=== PATIENT | female | born 1935 | race Caucasian/White ===

== ENCOUNTER 2017-03-03 12:15 | Inpatient (IN) | payer MEDICARE ==
[~2017-03-03] VITALS: Ht 162.6 cm; Wt 66.9 kg
[~2017-03-03 12:15] MED LIST: AMLO5TAB2 PO; ASPI325T33 PO; DEXTROSE 50% IN WATER 50 ML VIAL(D50) IV PUSH PRN; FISHCAP4 PO; FURO1TAB62 PO; FUROSEMIDE 40 MG/4 ML VIAL IVP SCH; GLUCAGON 1 MG/ML VIAL OTHER PRN; LANTUS2P SQ; NOVOLOGP2 SQ; POTA8CAP PO; SODIUM CHLORIDE 0.9% FLUSH 10 ML FLUSH IV FLUSH PRN; SYNT25TA PO; VITA1000 PO; [UNRECOGNIZED DRUG - OTHER]
[2017-03-03 13:13] VITALS: PULSE 65
[2017-03-03 13:30] VITALS: BP 158/83; PULSE 73; RESP 12; TEMP 96.7; O2SAT 97
[2017-03-03] MEDS ORDERED: LEVOFLOXACIN 750 MG TAB PO ONE (13:30)
[2017-03-03] MEDS: INSULIN ASPART SUPPLEMENTAL SCALE SQ SCH ×3 (13:52→21:23)
[2017-03-03] MEDS: HEPARIN SODIUM - SQ 10,000 UNITS/ML VIAL SQ SCH ×2 (13:52→21:22)
[2017-03-03] MEDS: SODIUM CHLORIDE 0.9% FLUSH 10 ML FLUSH IV FLUSH SCH ×2 (13:53→21:23)
[2017-03-03 16:00] VITALS: BP 150/81; PULSE 72; RESP 12; TEMP 96.6; O2SAT 97
[2017-03-03] MEDS ORDERED: BENZONATATE 100 MG CAP PO PRN (16:00)
[2017-03-03] MEDS ORDERED: amLODIPine BESYLATE 5 MG TAB PO ONE (16:15)
[2017-03-03] MEDS ORDERED: RESP: ALBUTEROL 2.5 MG/IPRATROPIUM 0.5 MG NEB (PRN) NEB (16:15)
--- NOTE | 2017-03-03 16:19 | HHI.HP ---
[facility] Eliazar Hopkins MD Admission Diagnosis Diagnoses: Travel History International Travel<30 Days: No Contact w/Intl Traveler <30 Da: No Traveled to Known Affected Are: No History of Present Illness 81-year-old female history of coronary artery disease status post CABG 6, colon cancer having completed chemotherapy, history of remote stroke, who presents with a one-week history of cough productive of clear sputum. She called EMS last night due to worsening of cough, experiencing an episode where she could not catch her breath, felt lightheaded if she was passed out, and also noticed fluid gurgling in her lungs, which was very concerning. She denies any fevers, chills, chest pain. She denies any shortness of breath. Patient denies any shortness of breath lying flat. Denies any bilateral lower extremity edema. She does report taking metoprolol 12.5 mg twice daily, however has not been taking it recently due to bradycardia with heart rate in the 50s. She has a erisa attorney, Dr. Milan" Review of Systems Performed and negative except for history of present illness and past medical history. Past Family Social History Past Medical History Diabetes mellitus and colon cancer status post chemotherapy Hyperlipidemia Coronary artery disease status post CABG Colon cancer status post chemotherapy Past Surgical History CABG 6. Cholecystectomy Hysterectomy Tonsillectomy history Of Graves' disease now with Hypothyroidism Reported Medications Reported Meds & Active Scripts Active Reported Amlodipine (Amlodipine Besylate) 5 Mg Tab 5 Mg PO DAILY Aspirin EC (Aspirin) 325 Mg Tabdr 325 Mg PO DAILY Synthroid (Levothyroxine Sodium) 25 Mcg Tab 88 PO DAILY Vitamin D-1000 (Cholecalciferol) 1,000 Unit Tab 1,000 Units PO DAILY Fish Oil + D3 (Fish Oil-Cholecalciferol) 1,200-1,000 Mg-Unit Cap 1 Cap PO DAILY Potassium Chloride ER (Potassium Chloride) 8 Meq Cap Unknown Dose PO BID Lasix (Furosemide) 20 Mg Tab 20 Mg PO BID Novolog Inj (Insulin Aspart) 1,000 Unit/10 Ml Vial 0 SQ DIRECTED Sliding Scale as directed. Lantus Inj (Insulin Glargine) 1,000 Unit/10 Ml Vial 20 Units SQ HS Allergies: Coded Allergies: diatrizoate meglumine (Unverified Allergy, Mild, ILL, 09/21/16) gadobenic acid (Unverified Allergy, Mild, ILL, 09/21/16) gadodiamide (Unverified Allergy, Mild, ILL, 09/21/16) gadoteridol (Unverified Allergy, Mild, ILL, 09/21/16) iodixanol (Unverified Allergy, Mild, ILL, 09/21/16) iohexol (Unverified Allergy, Mild, ILL, 09/21/16) meperidine (Unverified Allergy, Mild, SHOCK, 09/21/16) penicillin G (Unverified Allergy, Mild, HIVES, 09/21/16) amlodipine (Unverified Allergy, Unknown, unk, 09/21/16) atorvastatin (Unverified Allergy, Unknown, unk, 09/21/16) pravastatin (Unverified Allergy, Unknown, unk, 09/21/16) simvastatin (Unverified Allergy, Unknown, unk, 09/21/16) Family History Mother was a smoker, drinker, due to complications from this. She. Social History Nonsmoker. Nondrinker. Denies illicit drugs. Physical Exam Vital Signs Vital Signs Date Time Temp Pulse Resp B/P (MAP) Pulse Ox O2 Delivery O2 Flow Rate FiO2 03/03/17 13:30 96.7 73 12 158/83 (108) 97 Physical Exam GENERAL: This is a well-nourished, well-developed patient, in no apparent distress. SKIN: No rashes, ecchymoses or lesions. Cool and dry. HEAD: Atraumatic. Normocephalic. No temporal or scalp tenderness. EYES: Pupils equal round and reactive. Extraocular motions intact. No scleral icterus. No injection or drainage. ENT: Nose without bleeding, purulent drainage or septal hematoma. Throat without erythema, tonsillar hypertrophy or exudate. Uvula midline. Airway patent. NECK: Trachea midline. No JVD or lymphadenopathy. Supple, nontender, no meningeal signs. CARDIOVASCULAR: Regular rate and rhythm without murmurs, gallops, or rubs. RESPIRATORY: No rhonchi. No wheezes. Dry rales bilaterally at the bases. GASTROINTESTINAL: Abdomen soft, non-tender, nondistended. No hepato-splenomegaly , or palpable masses. No guarding. MUSCULOSKELETAL: Extremities without clubbing, cyanosis, or edema. No joint tenderness, effusion, or edema noted. No calf tenderness. Negative Homans sign bilaterally. NEUROLOGICAL: Awake and alert. Cranial nerves II through XII intact. Motor and sensory grossly within normal limits. Five out of 5 muscle strength in all muscle groups. Normal speech. Laboratory Laboratory Tests Test 03/03/17 04:15 Thyroid Stimulating Hormone 3rd Gen 1.280 Caprini VTE Risk Assessment Caprini VTE Risk Assessment: Mod/High Risk (score >= 2) Caprini Risk Assessment Model Point Value = 1 Point Value = 2 Point Value = 3 Point Value = 5 Age 41-60 Minor surgery BMI > 25 kg/m2 Swollen legs Varicose veins or History of unexplained or recurrent spontaneous Oral contraceptives or hormone replacement Sepsis (< 1 month) Serious lung disease, including pneumonia (< 1 month) Abnormal pulmonary function Acute myocardial infarction Congestive heart failure (< 1 month) History of inflammatory bowel disease Medical patient at bed rest Age 61-74 Arthroscopic surgery Major open surgery (> 45 min) Laparoscopic surgery (> 45 min) Malignancy Confined to bed (> 72 hours) Immobilizing plaster cast Central venous access Age >= 75 History of VTE Family history of VTE Factor V Leiden Prothrombin [id number] Lupus anticoagulant Anticardiolipin antibodies Elevated serum homocysteine Heparin-induced thrombocytopenia Other congenital or acquired thrombophilia Stroke (< 1 month) Elective arthroplasty Hip, pelvis, or leg fracture Acute spinal cord injury (< 1 month) Prophylaxis Regimen Total Risk Factor Score Risk Level Prophylaxis Regimen 0-1 Low Early ambulation 2 Moderate Order ONE of the following: *Sequential Compression Device (SCD) *Heparin 5000 units SQ BID 3-4 Higher Order ONE of the following medications: *Heparin 5000 units SQ TID *Enoxaparin/Lovenox 40 mg SQ daily (WT < 150 kg, CrCl > 30 mL/min) *Enoxaparin/Lovenox 30 mg SQ daily (WT < 150 kg, CrCl > 10-29 mL/min) *Enoxaparin/Lovenox 30 mg SQ BID (WT < 150 kg, CrCl > 30 mL/min) AND/OR *Sequential Compression Device (SCD) 5 or more Highest Order ONE of the following medications: *Heparin 5000 units SQ TID (Preferred with Epidurals) *Enoxaparin/Lovenox 40 mg SQ daily (WT < 150 kg, CrCl > 30 mL/min) *Enoxaparin/Lovenox 30 mg SQ daily (WT < 150 kg, CrCl > 10-29 mL/min) *Enoxaparin/Lovenox 30 mg SQ BID (WT < 150 kg, CrCl > 30 mL/min) AND *Sequential Compression Device (SCD) Assessment and Plan Assessment and Plan //Suspected flash pulmonary edema occurring overnight. -Chest x-ray with interstitial infiltrates -Improved with nitroglycerin in the ER. -BNP 384. -Rales on exam. This could be secondary to pneumonia. -Close monitoring of intake and output. -Echocardiogram. Cardiology consultation. //Atypical pneumonia //Uncontrolled cough -Chest x-ray with bilateral interstitial infiltrates morale is on exam. -We'll order Levaquin, duo nebs. Still on perles as needed for cough. //Diabetes mellitus type 1 with hyperglycemia [place]. -Glucose 432 on admission -Close 298 this morning. -We'll place on twice daily Levemir, insulin sliding scale. Hepatic diet. Expect to improve //Hypothyroidism. TSH within normal limits. Continue home medication Discussed Condition With patient, nurse, at bedside. Tyson Penny MD Mar 03, 2017 16:19
[2017-03-03] MEDS: ASPIRIN EC 325 MG TABEC PO SCH (17:07)
[2017-03-03] MEDS: FUROSEMIDE 20 MG TAB PO SCH (17:07)
[2017-03-03] MEDS ORDERED: FAMO1TAB37 PO ×2 (17:24→17:27)
[2017-03-03] MEDS ORDERED: COZA25TA PO (17:26)
[2017-03-03 20:00] VITALS: BP 151/79; PULSE 78; PULSE 82; RESP 19; TEMP 96.6; O2SAT 98
[2017-03-03] MEDS: INSULIN DETEMIR 100 UNITS/ML VIAL SQ SCH (21:22)
[2017-03-04] VITALS (8 sets, daily range): BP systolic 137–160; BP diastolic 70–83; PULSE 66–85; RESP 12–19; TEMP 96.8–98.7; O2SAT 94–100
[2017-03-04] MEDS: HEPARIN SODIUM - SQ 10,000 UNITS/ML VIAL SQ SCH ×3 (05:59→21:03)
[2017-03-04] MEDS: LEVOTHYROXINE SODIUM 88 MCG TAB PO SCH (05:59)
[2017-03-04 06:28] LABS: AUTOMATED NEUTROPHIL # 3.9 TH/MM3 (1.8-7.7); BASOPHIL % 0.8 % (0.0-2.0); EOSINOPHIL # 0.1 TH/MM3 (0-0.4); EOSINOPHIL % 1.6 % (0.0-4.0); HEMATOCRIT 35.3 % (35.0-46.0); HEMOGLOBIN 11.3 GM/DL (11.6-15.3); LYMPH % 24.4 % (9.0-44.0); LYMPHOCYTE # 1.4 TH/MM3 (1.0-4.8); MEAN CELL VOLUME 92.7 FL (80.0-100.0); MEAN CORPUSCULAR HEMOGLOBIN 29.6 PG (27.0-34.0); MEAN PLATELET VOLUME 10.8 FL (7.0-11.0); MONO % 8.3 % (0.0-8.0); MONOCYTE # 0.5 TH/MM3 (0-0.9); NEUT % 64.9 % (16.0-70.0); PLATELET COUNT 235 TH/MM3 (150-450); RED BLOOD COUNT 3.81 MIL/MM3 (4.00-5.30); RED CELL DISTRIBUTION WIDTH 13.6 % (11.6-17.2); WHITE BLOOD COUNT 5.9 TH/MM3 (4.0-11.0)
[2017-03-04 07:50] LABS: BICARBONATE 25.7 MEQ/L (21.0-32.0); CALCIUM 8.8 MG/DL (8.5-10.1); MAGNESIUM 2.2 MG/DL (1.5-2.5)
[2017-03-04 07:54] LABS: CREATININE 1.1 MG/DL (0.50-1.00)
[2017-03-04] MEDS: ASPIRIN EC 325 MG TABEC PO SCH (09:04)
[2017-03-04] MEDS: INSULIN ASPART SUPPLEMENTAL SCALE SQ SCH ×4 (09:04→21:03)
[2017-03-04] MEDS: SODIUM CHLORIDE 0.9% FLUSH 10 ML FLUSH IV FLUSH SCH ×2 (09:04→20:54)
[2017-03-04] MEDS: amLODIPine BESYLATE 5 MG TAB PO SCH (09:04)
[2017-03-04] MEDS: LEVOFLOXACIN 750 MG TAB PO SCH (09:05)
[2017-03-04] MEDS: FUROSEMIDE 20 MG TAB PO SCH ×2 (09:08→17:44)
--- NOTE | 2017-03-04 10:06 | EKG ---
Date Performed: 03/03/2017 Time Performed: 16:12:23 PTAGE: 81 years EKG: Sinus rhythm WITH FIRST DEGREE AV BLOCK WITH OCCASIONAL VENTRICULAR PREMATURE COMPLEXES POSSIBLE LEFT ATRIAL ENLA RGEMENT LEFT AXIS DEVIATION NONSPECIFIC INTRAVENTRICULAR CONDUCTION DELAY LATERAL ST/T CHANGES, CONSI CARLOS ISCHEMIA ABNORMAL ECG NO PREVIOUS TRACING DOCTOR: Miguel Gray Interpretating Date/Time 03/04/2017 10:05:49
--- NOTE | 2017-03-04 13:05 | HHI.PR ---
Subjective Remarks Follow up pulmonary edema and PNA. Patient seen and examined, lying in bed comfortably. at bedside. No complaints overnight, no acute events. Breathing well on room air. Denies any chest pain or shortness of breath. Ambulating well. Eating well, denies any ab pain, n/v/d or dysuria. Objective Vitals Vital Signs Date Time Temp Pulse Resp B/P (MAP) Pulse Ox O2 Delivery O2 Flow Rate FiO2 03/04/17 09:11 96.8 70 16 148/83 (104) 98 03/04/17 08:00 97.2 69 12 154/75 (101) 100 03/04/17 00:00 96.8 85 19 141/70 (93) 97 03/03/17 20:00 78 03/03/17 20:00 96.6 82 19 151/79 (103) 98 03/03/17 16:00 96.6 72 12 150/81 (104) 97 03/03/17 13:30 96.7 73 12 158/83 (108) 97 03/03/17 13:13 65 I/O 03/03/17 03/03/17 03/03/17 03/04/17 03/04/17 03/04/17 07:00 15:00 23:00 07:00 15:00 23:00 Intake Total 358 ml Balance 358 ml Intake Oral 358 ml Result Diagram: 03/04/1715 03/04/17 0515 Objective Remarks GENERAL: This is a well-nourished, well-developed patient, in no apparent distress. SKIN: No rashes, ecchymoses or lesions. Warm and dry. HEAD: Atraumatic. Normocephalic. EYES: Pupils equal round and reactive. Extraocular motions intact. No scleral icterus. No injection or drainage. ENT: Nose without bleeding, purulent drainage or septal hematoma. Throat without erythema, tonsillar hypertrophy or exudate. Uvula midline. Airway patent. NECK: Trachea midline. No JVD. Supple. CARDIOVASCULAR: Regular rate and rhythm without murmurs, gallops, or rubs. RESPIRATORY: No rhonchi. No wheezes. Dry rales bilaterally at the bases. GASTROINTESTINAL: Abdomen soft, non-tender, nondistended. No guarding. MUSCULOSKELETAL: Extremities without clubbing, cyanosis, or edema. No joint tenderness, effusion, or edema noted. NEUROLOGICAL: Awake and alert. Cranial nerves II through XII intact. Motor and sensory grossly within normal limits. Five out of 5 muscle strength in all muscle groups. Normal speech. A/P Problem List: (1) Atypical pneumonia ICD Code: J18.9 - Pneumonia, unspecified organism Plan: CXR reviewed showing diffuse interstitial prominence in the medical one third of the lungs and equalization of pulmonary flow. CBC and BMP reviewed and essentially unremarkable. Placed on Levaquin. Duonebs continued PRN. Supplemental O2 as needed. Tessalon for cough. (2) Pulmonary edema ICD Code: J81.1 - Chronic pulmonary edema Plan: Lasix 20 mg PO BID. ECHO performed. Pending. Awaiting cardiology consult and recommendations. Appreciate. (3) Hypothyroidism ICD Code: E03.9 - Hypothyroidism, unspecified Plan: Continue Levothyroxine. (4) Diabetes mellitus ICD Code: E11.9 - Type 2 diabetes mellitus without complications Plan: Placed on ACHS accu checks, sliding scale insulin, cover as needed. Monitor BS trends. Placed on long acting insulin. DVT Prophylaxis: SCDs. Heparin. Danielle Bravo Mar 04, 2017 13:05
--- NOTE | 2017-03-04 18:48 | HHI.DCPOC ---
Discharge Care Plan Diagnosis: (1) Atypical pneumonia (2) Pulmonary edema (3) Hypothyroidism (4) Diabetes mellitus Goals to Promote Your Health * To prevent worsening of your condition and complications * To maintain your health at the optimal level Directions to Meet Your Goals Take your medications as prescribed Follow your dietary instruction Follow activity as directed Keep your appointments as scheduled Take your immunizations and boosters as scheduled If your symptoms worsen call your PCP, if no PCP go to Urgent Care Center or Emergency Room Smoking is Dangerous to Your Health. Avoid second hand smoke Call the 24-hour hour crisis hotline for domestic abuse at Danielle Bravo Mar 04, 2017 18:48
[2017-03-04] MEDS ORDERED: LEVA750T9 PO (18:50)
--- NOTE | 2017-03-04 19:05 | ECHRPT ---
Indication: heart failure CONCLUSIONS The left ventricular systolic function is severely reduced with an estimated ejection fraction in th e range of 30-35%. Doppler parameters are consistent with impaired left ventricular relaxtion (grade 1 diastolic dysfun ction). Mild mitral valve regurgitation. There is trace tricuspid valve regurgitation. BP: / HR: Rhythm: MEASUREMENTS (Male / Female) Normal Values Technical Quality:Good 2D ECHO LV Diastolic Diameter PLAX 5.2 cm 4.2 - 5.9 / 3.9 - 5.3 cm LV Systolic Diameter PLAX 4.6 cm IVS Diastolic Thickness 1.1 cm 0.6 - 1.0 / 0.6 - 0.9 cm LVPW Diastolic Thickness 0.9 cm 0.6 - 1.0 / 0.6 - 0.9 cm LV Relative Wall Thickness 0.4 RV Internal Dim ED PLAX 2.3 cm M-MODE Aortic Root Diameter MM 3.2 cm LA Systolic Diameter MM 4.4 cm LA Ao Ratio MM 1.4 AV Cusp Separation MM 2.0 cm DOPPLER Mitral E Point Velocity 85.4 cm/s Mitral A Point Velocity 99.7 cm/s Mitral E to A Ratio 0.9 LV E' Lateral Velocity 6.0 cm/s Mitral E to LV E' Lateral Ratio 14.1 LV E' Septal Velocity 5.2 cm/s Mitral E to LV E' Septal Ratio 16.5 FINDINGS LEFT VENTRICLE Normal left ventricular size. The left ventricular systolic function is severely reduced with an estimated ejection fraction in th e range of 30-35%. There is global left ventricular dysfunction. Doppler parameters are consistent with impaired left ventricular relaxtion (grade 1 diastolic dysfun ction). RIGHT VENTRICLE Normal right ventricular size and systolic function. LEFT ATRIUM The left atrial size is mildly dilated. RIGHT ATRIUM The right atrial size is normal. ATRIAL SEPTUM Normal atrial septal thickness. AORTA The aortic root and proximal ascending aorta are normal in size on limited imaging. MITRAL VALVE Mild thickening of the mitral valve leaflets. Mild mitral valve regurgitation. No mitral valve stenosis. AORTIC VALVE Grossly normal aortic valve. No aortic valve stenosis or regurgitation. TRICUSPID VALVE Structurally normal tricuspid valve. There is trace tricuspid valve regurgitation. No tricuspid valve stenosis. PULMONARY VALVE The pulmonary valve is not well visualized. VESSELS The inferior vena cava is normal in size. PERICARDIUM No pericardial effusion. Ant Nixon DO (Electronically Signed) Final Date:04 March 2017 19:04
[2017-03-04] MEDS: INSULIN DETEMIR 100 UNITS/ML VIAL SQ SCH (21:02)
[2017-03-05] VITALS (11 sets, daily range): BP systolic 121–150; BP diastolic 59–84; PULSE 61–84; RESP 16–20; TEMP 96.5–98.9; O2SAT 95–99
[2017-03-05] MEDS: LEVOTHYROXINE SODIUM 88 MCG TAB PO SCH (05:44)
[2017-03-05] MEDS: HEPARIN SODIUM - SQ 10,000 UNITS/ML VIAL SQ SCH ×3 (05:46→21:43)
[2017-03-05 06:57] LABS: AUTOMATED NEUTROPHIL # 2.6 TH/MM3 (1.8-7.7); BASOPHIL % 0.5 % (0.0-2.0); EOSINOPHIL # 0.1 TH/MM3 (0-0.4); EOSINOPHIL % 2.5 % (0.0-4.0); HEMATOCRIT 36.6 % (35.0-46.0); HEMOGLOBIN 12.3 GM/DL (11.6-15.3); LYMPH % 32.7 % (9.0-44.0); LYMPHOCYTE # 1.5 TH/MM3 (1.0-4.8); MEAN CELL VOLUME 91.2 FL (80.0-100.0); MEAN CORPUSCULAR HEMOGLOBIN 30.6 PG (27.0-34.0); MEAN CORPUSCULAR HGB CONC 33.5 % (32.0-36.0); MEAN PLATELET VOLUME 9.9 FL (7.0-11.0); MONO % 9.7 % (0.0-8.0); MONOCYTE # 0.4 TH/MM3 (0-0.9); NEUT % 54.6 % (16.0-70.0); PLATELET COUNT 222 TH/MM3 (150-450); RED BLOOD COUNT 4.02 MIL/MM3 (4.00-5.30); RED CELL DISTRIBUTION WIDTH 13.7 % (11.6-17.2); WHITE BLOOD COUNT 4.6 TH/MM3 (4.0-11.0)
[2017-03-05 07:14] LABS: BICARBONATE 27.9 MEQ/L (21.0-32.0)
[2017-03-05 07:15] LABS: CALCIUM 8.9 MG/DL (8.5-10.1)
[2017-03-05 07:17] LABS: CREATININE 1.2 MG/DL (0.50-1.00)
[2017-03-05] MEDS: INSULIN ASPART SUPPLEMENTAL SCALE SQ SCH ×4 (08:07→21:42)
[2017-03-05] MEDS: SODIUM CHLORIDE 0.9% FLUSH 10 ML FLUSH IV FLUSH SCH ×2 (08:08→21:00)
[2017-03-05] MEDS: FUROSEMIDE 20 MG TAB PO SCH ×2 (08:10→17:27)
[2017-03-05] MEDS: amLODIPine BESYLATE 5 MG TAB PO SCH (08:10)
[2017-03-05] MEDS: LEVOFLOXACIN 750 MG TAB PO SCH (08:10)
[2017-03-05] MEDS: ASPIRIN EC 325 MG TABEC PO SCH (08:10)
--- NOTE | 2017-03-05 11:40 | HHI.PR ---
Addendum to Inpatient Note Addendum Reason: Additional Documentation Additional Information Patient examined in light of response to new onset numbness and weakness on her left side. Denies having any chest pain or shortness of breath. On exam patient has intact sensation to finger touch over her face bilaterally, pupils are equal round and reactive bilaterally, no facial droop, no slurred speech. As 4.5/5 strength on her left proximal extremity flexion and 5 out of 5 strength on her right proximal upper extremity. 4.5/5 on the left lower extremity and 5 out of 50 [place]iley strength. No pronator drift noted in upper shoulders, no drift loaded and lower extremity is bilaterally. Stroke alert called, contacted neurologist, Dr. Ascencio. Relayed findings to him. Recommended workup with CT and carotid ultrasounds, due to mild symptoms, he recommended against TPA. Uvaldo Landaverde MD Mar 05, 2017 11:39
[2017-03-05 11:44] LABS: AUTOMATED NEUTROPHIL # 3.6 TH/MM3 (1.8-7.7); BASOPHIL % 0.6 % (0.0-2.0); EOSINOPHIL # 0.1 TH/MM3 (0-0.4); EOSINOPHIL % 1.6 % (0.0-4.0); HEMATOCRIT 37.4 % (35.0-46.0); HEMOGLOBIN 12.4 GM/DL (11.6-15.3); LYMPH % 25.1 % (9.0-44.0); LYMPHOCYTE # 1.4 TH/MM3 (1.0-4.8); MEAN CELL VOLUME 91.5 FL (80.0-100.0); MEAN CORPUSCULAR HEMOGLOBIN 30.4 PG (27.0-34.0); MEAN CORPUSCULAR HGB CONC 33.2 % (32.0-36.0); MEAN PLATELET VOLUME 9.9 FL (7.0-11.0); MONOCYTE # 0.5 TH/MM3 (0-0.9); NEUT % 63.7 % (16.0-70.0); PLATELET COUNT 228 TH/MM3 (150-450); RED BLOOD COUNT 4.09 MIL/MM3 (4.00-5.30); RED CELL DISTRIBUTION WIDTH 13.5 % (11.6-17.2); WHITE BLOOD COUNT 5.6 TH/MM3 (4.0-11.0)
[2017-03-05 11:50] LABS: BICARBONATE 25.5 MEQ/L (21.0-32.0)
[2017-03-05 11:51] LABS: PROTHROMBIN TIME - PATIENT 10.4 SEC (9.8-11.6)
[2017-03-05 11:53] LABS: CREATININE 1.3 MG/DL (0.50-1.00)
--- NOTE | 2017-03-05 12:18 | HHI.PR ---
Subjective Remarks Follow-up cough. Patient seen and examined, sitting up in bed in comfortably at time of first assessment. She states the night was uneventful and her symptoms have much improved. Patient was eager to get home, with understanding for recommendations to follow-up with patient's siding stapler and to possibly undergo outpatient stress test. At the time of assessment patient denies any chest pain, shortness of breath or acute events. Eating well and ambulating. 1110 Patient has acute complaints of left upper extremity weakness. A stroke alert was called and protocol was performed. Neuro was consulted. CT was done, stat. Symptoms resolved several hours later. Neurology saw patient with further recommendations. Awaiting MRI. Continue neuro checks. Monitor. Objective Vitals Vital Signs Date Time Temp Pulse Resp B/P (MAP) Pulse Ox O2 Delivery O2 Flow Rate FiO2 03/05/17 11:09 63 20 148/67 (94) 03/05/17 07:50 97.3 69 20 143/69 (93) 98 03/05/17 07:01 61 03/05/17 04:58 97.9 80 16 125/79 (94) 97 03/05/17 00:25 98.0 84 18 121/84 (96) 98 03/04/17 23:00 66 03/04/17 21:23 97.7 77 16 160/75 (103) 99 03/04/17 16:00 98.0 75 16 151/75 (100) 95 I/O 03/04/17 03/04/17 03/04/17 03/05/17 03/05/17 03/05/17 07:00 15:00 23:00 07:00 15:00 23:00 Intake Total 240 ml 240 ml Output Total 300 ml 400 ml Balance -60 ml -400 ml 240 ml Intake Oral 240 ml 240 ml Output Urine Total 300 ml 400 ml # Voids 4 1 # Bowel Movements 0 2 Result Diagram: 03/05/17 1125 03/05/17 1125 Objective Remarks GENERAL: This is a well-nourished, well-developed patient, in no apparent distress. SKIN: No rashes, ecchymoses or lesions. Warm and dry. HEAD: Atraumatic. Normocephalic. EYES: Pupils equal round and reactive. Extraocular motions intact. No scleral icterus. No injection or drainage. ENT: Nose without bleeding, purulent drainage or septal hematoma. Throat without erythema, tonsillar hypertrophy or exudate. Uvula midline. Airway patent. NECK: Trachea midline. No JVD. Supple. CARDIOVASCULAR: Regular rate and rhythm without murmurs, gallops, or rubs. RESPIRATORY: No rhonchi. No wheezes. Dry rales bilaterally at the bases. GASTROINTESTINAL: Abdomen soft, non-tender, nondistended. No guarding. MUSCULOSKELETAL: Extremities without clubbing, cyanosis, or edema. No joint tenderness, effusion, or edema noted. NEUROLOGICAL: Awake and alert. Cranial nerves II through XII intact. Motor and sensory grossly within normal limits. Five out of 5 muscle strength in all muscle groups. Normal speech. A/P Problem List: (1) Left arm weakness ICD Code: R29.898 - Other symptoms and signs involving the musculoskeletal system Plan: A stroke alert was called. Stat CT performed showing no acute intracranial findings. Consult placed to neurology, appreciate input and recommendations. Patient placed on aspirin and Plavix. Continue neuro checks. Orthostatic blood pressures ordered. Ultrasound carotids ordered, pending. Follow. MRI of the brain ordered, follow results. (2) Atypical pneumonia ICD Code: J18.9 - Pneumonia, unspecified organism Plan: CXR reviewed showing diffuse interstitial prominence in the medical one third of the lungs and equalization of pulmonary flow. CBC and BMP reviewed and essentially unremarkable. Placed on Levaquin. Continue. Duonebs continued PRN. Supplemental O2 as needed. Tessalon for cough. (3) Pulmonary edema ICD Code: J81.1 - Chronic pulmonary edema Plan: Lasix 20 mg PO BID. Continue. ECHO performed. Showing left ventricular systolic function severely reduced EF 30-35%. Consistent with impaired left ventricular relaxation. Awaiting cardiology consult and recommendations. Appreciate. (4) Hypothyroidism ICD Code: E03.9 - Hypothyroidism, unspecified Plan: Continue Levothyroxine. (5) Diabetes mellitus ICD Code: E11.9 - Type 2 diabetes mellitus without complications Plan: Placed on ACHS accu checks, sliding scale insulin, cover as needed. Monitor BS trends. Placed on long acting insulin. DVT Prophylaxis: SCDs. Heparin. Danielle Bravo Mar 05, 2017 12:18
[2017-03-05] MEDS: SODIUM CHLOR 0.9% 1000 ML INJ 1,000 ML IV SCH (12:52)
[2017-03-05] MEDS ORDERED: POTASSIUM CHLORIDE 10 MEQ CONTROLLED RELEASE TAB PO ONE (13:00)
--- NOTE | 2017-03-05 13:27 | RADRPT ---
EXAM DATE/TIME: 03/05/2017 11:32 CORRECTION Corrected on: March 05, 2017; CHANGED TO W. OUT CONTRAST [place] COMPARISON: No previous studies available for comparison. INDICATIONS : Stroke alert, bilaterl arm weakness. RADIATION DOSE: 59.77 CTDIvol (mGy) MEDICAL HISTORY : not able to obtain SURGICAL HISTORY : not able to obtain ENCOUNTER: Initial ACUITY: 1 day PAIN SCALE: 0/10 LOCATION: cranial TECHNIQUE: Multiple contiguous axial images were obtained of the head. Using automated exposure control and adj ustment of the mA and/or kV according to patient size, radiation dose was kept as low as reasonably a chievable to obtain optimal diagnostic quality images. DICOM format image data is available electro nically for review and comparison. FINDINGS: CEREBRUM: Lacunar infarcts identified in the thalami bilaterally and basal ganglia bilaterally. There age-indet erminate. The ventricles are normal for age. No evidence of midline shift, cerebral edema or blood p roducts. No extra-axial fluid collections are seen. POSTERIOR FOSSA: The cerebellum and brainstem are intact. The 4th ventricle is midline. The cerebellar pontine angle is unremarkable. EXTRACRANIAL: The visualized portion of the orbits is intact. SKULL: The calvaria is intact. No evidence of skull fracture. CONCLUSION: No acute intracranial findings. Yves Palencia MD on March 05, 2017 at 12:15 Board Certified Radiologist. This report was verified electronically.
--- NOTE | 2017-03-05 13:28 | EKG ---
Date Performed: 03/04/2017 Time Performed: 13:57:17 PTAGE: 81 years EKG: Sinus rhythm POSSIBLE LEFT ATRIAL ENLARGEMENT MARKED LEFT AXIS DEVIATION INTRAVENTRICULAR CONDUCTION DELAY Since the prior tracing, there has been no significant change ABNORMAL ECG PREVIOUS TRACING : 03/03/2017 16.12 DOCTOR: Stas Cook Interpretating Date/Time 03/05/2017 13:26:15
[2017-03-05] MEDS ORDERED: CLOPIDOGREL 75 MG TAB PO ONE (17:00)
--- NOTE | 2017-03-05 20:52 | MB ---
cc: SKIP FIGUEROA MD DATE OF CONSULTATION 03/05/17 She was called to me today as a stroke alert and I spoke to the primary care physician. The patient was admitted to the hospital with some chest pain yesterday. She has a history of coronary artery disease and diabetes mellitus. Today she developed some subjective left-sided weakness around 11 o'clock. That is when the stroke alert was called. She seems to be doing better but not completely recovered. She admits a history of a stroke two years ago that caused some vague left-sided symptoms, but she recovered well. She takes aspirin at home daily. NEUROLOGIC EXAM The patient is alert and oriented. The is at the bedside. She is mildly anxious. Ocular movements were full as well as visual craig. There is no facial weakness. There is no arm drift. She resists symmetrically with both upper and lower extremities on the bedside exam. I saw her standing up for the nursing staff to have her blood pressure checked. She needed some minimal assistance. The reflexes were absent throughout and the plantar responses were flexor. IMAGING STUDIES A CT brain showed no acute abnormality. An MRI brain was subsequently obtained today and I was unable to access these as, for some reason, I was not allowed was access with pictures and there is no report. LABORATORY DATA The chemistry today is seen. BUN 21, creatinine 1.3, glucose 153, sodium 140, potassium 3.3. Carotid ultrasound also has been done but no reports. ASSESSMENT Essentially, this patient developed left-sided weakness, subjective today, and the exam earlier today by the primary care physician is unremarkable. I examined the patient and also found no definitive hemiparesis. Therefore, I felt this patient was not a candidate for TPA. We are waiting on the results of the MRI brain and carotid ultrasound. The EKG is showing sinus rhythm. Additional evaluation to include echo if not done recently and a lipid profile. Continue aspirin and I will add Plavix daily for the next month or so. Thank you for asking us to assist in her care. MD AJ Charlton/ /4:41 PM /8:23 PM
[2017-03-05 21:36] LABS: CHOLESTEROL/ HDL RATIO 4.91 RATIO; HDL CHOLESTEROL 50.5 MG/DL (40.0-60.0)
[2017-03-05] MEDS: INSULIN DETEMIR 100 UNITS/ML VIAL SQ SCH (21:42)
[2017-03-06] VITALS (22 sets, daily range): BP systolic 95–149; BP diastolic 56–118; PULSE 33–94; RESP 18–20; TEMP 97–98.9; O2SAT 93–100
[2017-03-06] MEDS: NITROGLYCERIN 0.4 MG SL 25 TABS/BTL SL PRN ×2 (01:28→01:50)
[2017-03-06] MEDS: SODIUM CHLOR 0.9% 1000 ML INJ 1,000 ML IV SCH ×2 (01:58→17:06)
[2017-03-06 02:12] LABS: AUTOMATED NEUTROPHIL # 4.5 TH/MM3 (1.8-7.7); BASOPHIL % 0.6 % (0.0-2.0); EOSINOPHIL % 0.2 % (0.0-4.0); HEMATOCRIT 34.8 % (35.0-46.0); HEMOGLOBIN 11.3 GM/DL (11.6-15.3); LYMPH % 13.1 % (9.0-44.0); LYMPHOCYTE # 0.7 TH/MM3 (1.0-4.8); MEAN CELL VOLUME 90.9 FL (80.0-100.0); MEAN CORPUSCULAR HEMOGLOBIN 29.5 PG (27.0-34.0); MEAN CORPUSCULAR HGB CONC 32.5 % (32.0-36.0); MEAN PLATELET VOLUME 9.8 FL (7.0-11.0); MONO % 4.4 % (0.0-8.0); MONOCYTE # 0.2 TH/MM3 (0-0.9); NEUT % 81.7 % (16.0-70.0); PLATELET COUNT 227 TH/MM3 (150-450); RED BLOOD COUNT 3.83 MIL/MM3 (4.00-5.30); RED CELL DISTRIBUTION WIDTH 13.6 % (11.6-17.2); WHITE BLOOD COUNT 5.4 TH/MM3 (4.0-11.0)
[2017-03-06 02:32] LABS: CHLORIDE 107 MEQ/L (98-107); SODIUM (NA) 138 MEQ/L (136-145)
[2017-03-06 02:35] LABS: CALCIUM 8.4 MG/DL (8.5-10.1)
[2017-03-06 02:36] LABS: BICARBONATE 19.3 MEQ/L (21.0-32.0); BLOOD UREA NITROGEN 24 MG/DL (7-18); GLUCOSE,RANDOM 242 MG/DL (74-106); MAGNESIUM 1.9 MG/DL (1.5-2.5)
[2017-03-06 02:39] LABS: GLOMERULAR FILTRATION RATE 40 ML/MIN (>89)
[2017-03-06 02:44] LABS: TROPONIN I LESS THAN 0.02 NG/ML (0.02-0.05)
[2017-03-06] MEDS: HEPARIN SODIUM - SQ 10,000 UNITS/ML VIAL SQ SCH ×3 (05:33→21:01)
[2017-03-06] MEDS: LEVOTHYROXINE SODIUM 88 MCG TAB PO SCH (05:33)
[2017-03-06 08:16] LABS: BICARBONATE 23.7 MEQ/L (21.0-32.0); CALCIUM 8.5 MG/DL (8.5-10.1)
[2017-03-06 08:19] LABS: CREATININE 1.1 MG/DL (0.50-1.00)
[2017-03-06] MEDS: INSULIN ASPART SUPPLEMENTAL SCALE SQ SCH ×4 (08:23→20:54)
[2017-03-06] MEDS: SODIUM CHLORIDE 0.9% FLUSH 10 ML FLUSH IV FLUSH SCH ×2 (08:24→20:54)
[2017-03-06] MEDS: amLODIPine BESYLATE 5 MG TAB PO SCH (08:24)
[2017-03-06] MEDS: ASPIRIN EC 325 MG TABEC PO SCH (08:24)
[2017-03-06] MEDS: LEVOFLOXACIN 750 MG TAB PO SCH (08:24)
[2017-03-06 08:25] LABS: TROPONIN I 0.05 NG/ML (0.02-0.05)
[2017-03-06] MEDS: FUROSEMIDE 20 MG TAB PO SCH ×2 (09:48→17:06)
[2017-03-06] MEDS: POTASSIUM CHLORIDE 10 MEQ CAP PO SCH (09:48)
--- NOTE | 2017-03-06 11:01 | HHI.PR ---
Subjective Remarks Follow-up chest pain, left upper and lower extremity weakness. Patient seen and examined, lying comfortably in bed. They report of chest pain overnight, nitroglycerin was given and troponins performed. Chest pain has resolved this morning. No other complaints. Patient did eat breakfast this morning with coffee, unfortunately unable to perform stress test today. Patient will undergo stress test tomorrow morning. Objective Vitals Vital Signs Date Time Temp Pulse Resp B/P (MAP) Pulse Ox O2 Delivery O2 Flow Rate FiO2 03/06/17 08:00 97.7 83 18 149/118 (128) 100 03/06/17 05:32 78 18 136/71 (92) 97 03/06/17 04:36 98.3 80 18 127/70 (89) 98 03/06/17 02:20 33 03/06/17 01:55 84 20 125/65 (85) 98 03/06/17 01:50 72 120/74 (89) 93 03/06/17 01:48 76 136/72 (93) 99 03/06/17 01:44 77 116/67 (83) 99 03/06/17 01:40 77 121/68 (85) 99 03/06/17 01:36 83 18 95/56 (69) 98 03/06/17 01:32 87 123/73 (90) 98 03/06/17 01:30 97 Nasal Cannula 2.00 03/06/17 01:28 78 142/83 (102) 100 03/06/17 01:28 100 Nasal Cannula 2.00 03/06/17 00:08 98.0 85 18 142/67 (92) 95 03/05/17 21:30 98.9 81 20 133/64 (87) 97 03/05/17 21:20 Room Air 03/05/17 19:45 63 03/05/17 15:30 96.7 66 20 124/59 (80) 99 124/60 (81) 150/69 (96) 03/05/17 15:01 67 03/05/17 11:50 96.5 67 20 134/67 (89) 95 03/05/17 11:09 63 20 148/67 (94) 03/05/17 11:01 68 I/O 03/05/17 03/05/17 03/05/17 03/06/17 03/06/17 03/06/17 07:00 15:00 23:00 07:00 15:00 23:00 Intake Total 240 ml 586 ml 1000 ml Balance 240 ml 586 ml 1000 ml Intake Oral 240 ml 120 ml IV Total 466 ml 1000 ml # Voids 4 1 2 3 # Bowel Movements 2 0 0 Result Diagram: 03/06/17 0158 03/06/17 0737 Imaging Last Impressions Head CT 03/05/17 0000 Signed Impressions: Service Date/Time: Sunday, March 05, 2017 11:32 - CONCLUSION: No acute intracranial findings. Yves Palencia MD Objective Remarks GENERAL: This is a well-nourished, well-developed patient, in no apparent distress. SKIN: No rashes, ecchymoses or lesions. Warm and dry. HEAD: Atraumatic. Normocephalic. EYES: Pupils equal round and reactive. Extraocular motions intact. No scleral icterus. No injection or drainage. ENT: Nose without bleeding, purulent drainage or septal hematoma. Throat without erythema, tonsillar hypertrophy or exudate. Uvula midline. Airway patent. NECK: Trachea midline. No JVD. Supple. CARDIOVASCULAR: Regular rate and rhythm without murmurs, gallops, or rubs. RESPIRATORY: No rhonchi. No wheezes. Dry rales bilaterally at the bases. GASTROINTESTINAL: Abdomen soft, non-tender, nondistended. No guarding. MUSCULOSKELETAL: Extremities without clubbing, cyanosis, or edema. No joint tenderness, effusion, or edema noted. NEUROLOGICAL: Awake and alert. Cranial nerves II through XII intact. Motor and sensory grossly within normal limits. Five out of 5 muscle strength in all muscle groups. Normal speech. A/P Problem List: (1) Left arm weakness ICD Code: R29.898 - Other symptoms and signs involving the musculoskeletal system Plan: A stroke alert was called. Stat CT performed showing no acute intracranial findings. Consult placed to neurology, appreciate input and recommendations. Patient placed on aspirin and Plavix. Continue neuro checks. Orthostatic blood pressures ordered. Ultrasound carotids ordered, pending. Follow. Waiting results. MRI of the brain ordered, follow results. Awaiting results. Left upper extremity hemiparesis has now resolved. (2) Chest pain ICD Code: R07.9 - Chest pain, unspecified Plan: He reports of chest pain overnight, patient was given nitroglycerin and EKG troponin were obtained. Patient did have caffeine this morning unfortunately, will undergo stress test in the morning. Chest pain has not resolved. (3) Atypical pneumonia ICD Code: J18.9 - Pneumonia, unspecified organism Plan: CXR reviewed showing diffuse interstitial prominence in the medical one third of the lungs and equalization of pulmonary flow. CBC and BMP reviewed and essentially unremarkable. Placed on Levaquin. Duonebs continued PRN. Supplemental O2 as needed. Tessalon for cough. (4) Pulmonary edema ICD Code: J81.1 - Chronic pulmonary edema Plan: Lasix 20 mg PO BID. ECHO performed. Pending. Awaiting cardiology consult and recommendations. Appreciate. (5) Hypothyroidism ICD Code: E03.9 - Hypothyroidism, unspecified Plan: Continue Levothyroxine. (6) Diabetes mellitus ICD Code: E11.9 - Type 2 diabetes mellitus without complications Plan: Placed on ACHS accu checks, sliding scale insulin, cover as needed. Monitor BS trends. Placed on long acting insulin. DVT Prophylaxis: SCDs. Heparin. Danielle Bravo Mar 06, 2017 11:01
--- NOTE | 2017-03-06 12:24 | EKG ---
Date Performed: 03/05/2017 Time Performed: 12:09:00 PTAGE: 81 years EKG: Sinus rhythm WITH FIRST DEGREE AV BLOCK POSSIBLE LEFT ATRIAL ENLARGEMENT MARKED LEFT AXIS DEVIATION INTRAVENTRICU LAR CONDUCTION DELAY INFERIOR MYOCARDIAL INFARCTION ABNORMAL ECG PREVIOUS TRACING : 03/04/2017 13.57 Since the prior tracing, there has been no significant dixon DOCTOR: Stas Cook Interpretating Date/Time 03/06/2017 12:21:20
[2017-03-06 14:13] LABS: TROPONIN I 0.05 NG/ML (0.02-0.05)
[2017-03-06] MEDS: INSULIN DETEMIR 100 UNITS/ML VIAL SQ SCH (20:54)
[2017-03-07] VITALS (13 sets, daily range): BP systolic 84–144; BP diastolic 58–81; PULSE 58–103; RESP 16–20; TEMP 96–97.5; O2SAT 89–98
[2017-03-07] MEDS: HEPARIN SODIUM - SQ 10,000 UNITS/ML VIAL SQ SCH ×3 (05:04→22:01)
[2017-03-07] MEDS: LEVOTHYROXINE SODIUM 88 MCG TAB PO SCH (05:04)
[2017-03-07] MEDS: INSULIN ASPART SUPPLEMENTAL SCALE SQ SCH ×4 (08:00→22:10)
[2017-03-07] MEDS ORDERED: ALPRAZolam 0.25 MG TAB PO PRN (08:15)
--- NOTE | 2017-03-07 08:52 | HHI.PR ---
Addendum to Inpatient Note Addendum Reason: Additional Documentation Additional Information I was called emergently to the bedside around 7:50 this AM. Patient was yelling and screaming that she couldn't move. She was very tearful. Vital signs were checked and were stable. On examination the patient showed initially 1 out of 5 proximal upper and lower extremities including dorsiflexion and plantarflexion and UE flexion and extension. She did have intact sensation to pinprick with my pen all throughout her lower extremities bilaterally as well has her forearms bilaterally and she did have intact sensation to my light finger touch bilaterally over her face. Pupils are equal and reactive bilaterally. Extraocular motions were intact, uvula and tongue were in the midline. When I asked the patient to touch my finger with each of her index fingers, she eventually did independently execute good finger to finger touch but in a very slowed fashion that appear to require a lot of effort. Patient denies any nausea vomiting or headaches at this time. The emergently paged neurology, we were rerouted from Dr. Mobley to Dr. Ascencio. Case was d/w Dr. Ascencio, we both found out that the initial MRIs that were performed somehow had an IT glitch and thus we had no brain MRI to work with up until this time. He recommended to continue with MRI brain as well as MRA brain and neck. Eventually about 15 minutes later, the nurse and told me that the patient got up on her own and had ambulated to the restroom by herself. Dr. Ascencio has that he would come and evaluate the patient. Aggregate critical care time was 35 minutes spent at bedside or in the hospital [facility]. Time to perform other separately billable procedures was not included in the critical care time. My time did not include minutes spent treating any other patient simultaneously or on activities that did not directly To be due to the patient's treatment. The services are provided to this patient were to treat and/or prevent clinically significant deterioration that could result in organ failure, , disability, or imminent clinical deterioration in the patient's condition. I provided critical care services requiring my management as noted above. Uavldo Landaverde MD Mar 07, 2017 08:52
[2017-03-07] MEDS ORDERED: CITALOPRAM HYDROBROMIDE 20 MG TAB PO SCH (09:00)
[2017-03-07] MEDS: FUROSEMIDE 20 MG TAB PO SCH ×2 (09:00→18:00)
[2017-03-07] MEDS: POTASSIUM CHLORIDE 10 MEQ CAP PO SCH (09:20)
[2017-03-07] MEDS: LEVOFLOXACIN 750 MG TAB PO SCH (09:20)
[2017-03-07] MEDS: amLODIPine BESYLATE 5 MG TAB PO SCH (09:21)
[2017-03-07] MEDS: ASPIRIN EC 325 MG TABEC PO SCH (09:21)
[2017-03-07] MEDS: SODIUM CHLORIDE 0.9% FLUSH 10 ML FLUSH IV FLUSH SCH ×2 (09:21→21:00)
--- NOTE | 2017-03-07 10:09 | HHI.PR ---
Subjective Remarks Follow-up chest pain and neurological complaints. Patient seen and examined, called to bedside due to patient screaming out stated "she cant remove her upper and lower extremities". Patient is crying saying "we are killing her" and "She's never felt this before". Patient assessed and reassured. Dr. Landaverde at bedside. Dr. Robbins called and updated about patient condition. Further imaging ordered. Shortly after this episode, patient is found to be walking to her bathroom and resolution of all symptoms. Chest pain has now resolved. Patient relates symptoms to anxiety. Objective Vitals Vital Signs Date Time Temp Pulse Resp B/P (MAP) Pulse Ox O2 Delivery O2 Flow Rate FiO2 03/07/17 08:52 97.5 58 18 144/71 (95) 98 03/07/17 05:53 03/07/17 00:31 97.0 60 16 131/79 (96) 95 03/06/17 23:40 96 21 03/06/17 21:20 98.7 66 18 127/75 (92) 97 03/06/17 20:00 67 03/06/17 20:00 97 Room Air 28 03/06/17 16:11 95 Nasal Cannula 2.00 03/06/17 16:00 97.8 75 18 118/68 (85) 100 03/06/17 15:00 76 03/06/17 12:00 97.0 64 18 118/61 (80) 100 I/O 03/06/17 03/06/17 03/06/17 03/07/17 03/07/17 03/07/17 07:00 15:00 23:00 07:00 15:00 23:00 Intake Total 1000 ml 1820 ml Balance 1000 ml 1820 ml Intake Oral 750 ml IV Total 1000 ml 1070 ml # Voids 3 4 6 # Bowel Movements 0 1 Result Diagram: 03/06/17 0158 03/06/17 0737 Imaging Last Impressions Brain MRI 03/07/17 0834 Signed Impressions: Service Date/Time: Tuesday, March 07, 2017 09:44 - CONCLUSION: 1. 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 2. Chronic ischemic small vessel vasculopathy. 3. No acute infarction Francisco J Carbajal MD Carotid Artery Ultrasound 03/07/17 0000 Signed Impressions: Service Date/Time: Sunday, March 05, 2017 00:00 - CONCLUSION: 1. No hemodynamically significant stenosis in either carotid artery. Francisco J Carbajal MD Head CT 03/05/17 0000 Signed Impressions: Service Date/Time: Sunday, March 05, 2017 11:32 - CONCLUSION: No acute intracranial findings. Yves Palencia MD Objective Remarks GENERAL: This is a well-nourished, well-developed patient, in apparent distress , stating she can't move her upper and lower extremities. Tearful SKIN: No rashes, ecchymoses or lesions. Warm and dry. HEAD: Atraumatic. Normocephalic. EYES: Pupils equal round and reactive. Extraocular motions intact. No scleral icterus. No injection or drainage. ENT: Nose without bleeding, purulent drainage or septal hematoma. Throat without erythema, tonsillar hypertrophy or exudate. Uvula midline. Airway patent. NECK: Trachea midline. No JVD. Supple. CARDIOVASCULAR: Regular rate and rhythm without murmurs, gallops, or rubs. RESPIRATORY: No rhonchi. No wheezes. Dry rales bilaterally at the bases. GASTROINTESTINAL: Abdomen soft, non-tender, nondistended. No guarding. MUSCULOSKELETAL: Extremities without clubbing, cyanosis, or edema. No joint tenderness, effusion, or edema noted. NEUROLOGICAL: Awake and alert. Cranial nerves II through XII intact. At the time of assessment patient is not moving her upper and lower extremities. All reflexes intact. A/P Problem List: (1) Left arm weakness ICD Code: R29.898 - Other symptoms and signs involving the musculoskeletal system Plan: A stroke alert was called on 03/05/17. Stat CT performed showing no acute intracranial findings. Neurology following patient. Recommendations for Plavix, MRI and carotid ultrasound. Carotid ultrasound is unremarkable. Echocardiogram already done earlier this admission, EF 30-35%. Patient placed on aspirin and Plavix. Continue neuro checks. Brain MRI reviewed showing old small infarct right parietal and right occipital nodes. Chronic ischemic small vessel vasculopathy. No acute infarction. Awaiting MRA of the neck and head, follow results. All symptoms have resolved. Monitor. (2) Atypical pneumonia ICD Code: J18.9 - Pneumonia, unspecified organism Plan: CXR reviewed showing diffuse interstitial prominence in the medical one third of the lungs and equalization of pulmonary flow. CBC and BMP reviewed and essentially unremarkable. Continue Levaquin Duonebs continued PRN. Supplemental O2 as needed. Tessalon for cough. (3) Pulmonary edema ICD Code: J81.1 - Chronic pulmonary edema Plan: Lasix 20 mg PO BID. Continue. ECHO performed. Showing left ventricular systolic function severely reduced EF 30-35%. Consistent with impaired left ventricular relaxation. 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 (4) Hypothyroidism ICD Code: E03.9 - Hypothyroidism, unspecified Plan: Continue Levothyroxine. (5) Diabetes mellitus ICD Code: E11.9 - Type 2 diabetes mellitus without complications Plan: Placed on ACHS accu checks, sliding scale insulin, cover as needed. Monitor BS trends. Placed on long acting insulin. (6) Anxiety ICD Code: F41.9 - Anxiety disorder, unspecified Plan: Placed on Celexa. Xanax available as needed. DVT Prophylaxis: SCDs. Heparin. Assessment and Plan Patient underwent a cardiac nuclear stress test today. Showing a partially reversible moderate to large defect involving the inferior and inferior lateral mcdermott. Markedly decreased calculated EF of 27% with akinesis involving portions of the inferior and inferior apical mcdermott. High risk. Dr. Green, cardiology on-call, was called and updated about nuclear stress test results. A stat transfer to the [facility] has been ordered to undergo a cardiac catheter today. Spoke at length to and patient regarding nuclear stress test results. All questions answered to the best of my ability. Patient is understandable of the plan of care. Brain MRI also reviewed showing old small infarct right parietal and right occipital lobes, chronic ischemic small vessel vasculopathy. No acute infarction. Head MRA showing atherosclerotic disease generating 50% stenosis of the right P1 origin. Neck MRA showing patent carotid arteries and vertebral arteries bilaterally. Dr. Robbins at bedside today with no further recommendations from neurology standpoint. Continue aspirin and Plavix. Danielle Bravo Mar 07, 2017 10:09
--- NOTE | 2017-03-07 10:39 | RADRPT ---
EXAM DATE/TIME: 03/07/2017 09:44 [facility] COMPARISON: No previous studies available for comparison. INDICATIONS : Left sided numbness. MEDICAL HISTORY : Diabetes mellitus type 1. Congestive heart failure. Stroke SURGICAL HISTORY : CABG Cholecystectomy. Tonsillectomy. ENCOUNTER: Initial ACUITY: 2 day PAIN SCORE: 0/10 LOCATION: head TECHNIQUE: Multiplanar, multisequence MRI of the brain was performed without contrast. FINDINGS: CEREBRUM: Small areas of encephalomalacia right parietal and right occipital lobes. The ventricles are normal f or age. No evidence of midline shift, mass lesion, hemorrhage or acute infarction. No extraaxial fl uid collections are seen. The pituitary gland and suprasellar cistern are normal in configuration. WHITE MATTER: Scattered foci of bright T2 signal abnormalities are seen in the white matter and brainstem. POSTERIOR FOSSA: The cerebellum is intact. The 4th ventricle is midline. The cerebellopontine angle is unremarkable. The cerebellar tonsils are normal in position. DIFFUSION IMAGING: No focal areas of restricted diffusion are seen. No evidence of acute infarction. EXTRACRANIAL: The visualized portions of the orbits and paranasal sinuses are unremarkable. CONCLUSION: 1. 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 2. Chronic ischemic small vessel vasculopathy. 3. No acute infarction Francisco J Carbajal MD on March 07, 2017 at 10:34 Board Certified Radiologist. This report was verified electronically.
--- NOTE | 2017-03-07 11:06 | RADRPT ---
EXAM DATE/TIME: 03/05/2017 00:00 [facility] COMPARISON: No previous studies available for comparison. INDICATIONS : Stroke. MEDICAL HISTORY : Cardiovascular disease. Hypercholesterolemia. Cardiac disorder. Diabets. Colon cancer. Graves disea se. SURGICAL HISTORY : Tonsillectomy. Cholecystectomy. Hysterectomy. Eye surgery. Cardiac stent. Cardiac cath. CABG. Neck an d shoulder surgery. ENCOUNTER: Initial ACUITY: 1 day PAIN SCORE: 0/10 LOCATION: Bilateral neck PEAK SYSTOLIC VELOCITIES (cm/sec): ICA/CCA RATIO: Right: 1.8 Left: 0.9 ICA: Right: 101 Left: 93 CCA: Right: 56 Left: 108 ECA: Right: 156 Left: 95 VERTEBRAL: Right: 66 antegrade Left: 58 antegrade Elevated flow velocities and ICA/CCA ratios have been found to correlate with increased degrees of vessel stenosis, calculated as percentage of diameter relative to a normal segment of distal ICA/CCA FINDINGS: RIGHT CAROTID: No significant stenosis is visualized. Mild plaque. The waveforms are within normal limits. LEFT CAROTID: No significant stenosis is visualized. Mild plaque. The waveforms are within normal limits. VERTEBRAL ARTERIES: Antegrade flow is seen in both vertebral arteries. MISCELLANEOUS: None. CONCLUSION: 1. No hemodynamically significant stenosis in either carotid artery. Francisco J Carbajal MD on March 07, 2017 at 11:02 Board Certified Radiologist. This report was verified electronically.
--- NOTE | 2017-03-07 11:16 | RADRPT ---
EXAM DATE/TIME: 03/07/2017 09:44 [facility] COMPARISON: No previous studies available for comparison. INDICATIONS : Left-sided numbness MEDICAL HISTORY : Diabetes type 1. Congestive heart failure. Stroke. SURGICAL HISTORY : CABG and cholecystectomy. Tonsillectomy. ENCOUNTER: Initial ACUITY: 2 day PAIN SCORE: 0/10> LOCATION: <<head> Percent stenosis is calculated using the diameter of the stenotic region over the diameter of the nor mal distal internal carotid artery. TECHNIQUE: 3D time of flight MRA of the extracranial circulation was performed using a neurovascular coil. Post processing was performed including rotating subvolume maximum intensity projections of each carotid artery, rotating full-volume maximum intensity projections of both carotid arteries, sagittal and cor onal sliding thin-slab reformations of each carotid artery, and left oblique sliding thin slab reform ation through the aortic arch to include the origin of the arch branch vessels. FINDINGS: AORTIC ARCH: There is a 2 vessel arch with the common carotid artery and brachiocephalic arteries sharing a common origin. Arch vessels and visualized portions of both subclavian arteries are patent. RIGHT CAROTID: The common carotid artery is intact. The carotid bulb has a normal configuration without ulceration or narrowing. The internal carotid artery lumen is smooth without stenosis. The external carotid ar jena is intact. LEFT CAROTID: The common carotid artery is intact. The carotid bulb has a normal configuration without ulceration or narrowing. The internal carotid artery lumen is smooth without stenosis. The external carotid ar jena is intact. VERTEBRALS: The vertebral arteries have a symmetric diameter. No stenotic lesions are seen. CONCLUSION: 1. Patent carotid arteries and vertebral arteries bilaterally. José Manuel Sandhu Jr., MD on March 07, 2017 at 11:02 Board Certified Radiologist. This report was verified electronically.
--- NOTE | 2017-03-07 11:21 | RADRPT ---
EXAM DATE/TIME: 03/07/2017 09:44 [facility] COMPARISON: No previous studies available for comparison. INDICATIONS : CVA. Left sided numbness. MEDICAL HISTORY : Diabetes mellitus type 1. Congestive heart failure. Stroke SURGICAL HISTORY : CABG Cholecystectomy. Tonsillectomy. ENCOUNTER: Initial ACUITY: 2 day PAIN SCORE: 0/10 LOCATION: head Patient was premedicated per protocol for underlying contrast media allergy. Please note a normal MRA of the brain does not entirely exclude the possibility of a small aneurysm, nor the possibility of distal intracranial vessel disease. TECHNIQUE: 3D time of flight MRA was performed. Source images, multiplanar STS MIP, and 3D volume MIP reconstru ctions were reviewed. FINDINGS: There is excellent visualization of the major intracranial arteries out to the second-order branch ve ssels. There is a 50% stenosis involving the origin of the right P1 segment. Persistent circula tion is seen on the left. Atherosclerotic plaque within the intercavernous ICAs bilaterally without a significant stenosis. There is no evidence for aneurysm or vascular malformation. CONCLUSION: 1. Atherosclerotic disease generating a 50% stenosis of the right P1 origin. No other significant henny noses observed. José Manuel Sandhu Jr., MD on March 07, 2017 at 11:14 Board Certified Radiologist. This report was verified electronically.
[2017-03-07 11:33] LABS: CHLORIDE 109 MEQ/L (98-107); SODIUM (NA) 141 MEQ/L (136-145)
[2017-03-07 11:37] LABS: ALBUMIN 3.3 GM/DL (3.4-5.0); BICARBONATE 24.3 MEQ/L (21.0-32.0); CALCIUM 8.8 MG/DL (8.5-10.1)
[2017-03-07 12:11] LABS: ALKALINE PHOSPHATASE 69 U/L (45-117); ALT (GPT) 16 U/L (10-53); AST (GOT) 32 U/L (15-37); BLOOD UREA NITROGEN 18 MG/DL (7-18); GLOMERULAR FILTRATION RATE 43 ML/MIN (>89); GLUCOSE,RANDOM 112 MG/DL (74-106); MAGNESIUM 2.2 MG/DL (1.5-2.5); TOTAL BILIRUBIN ADULT 0.8 MG/DL (0.2-1.0); TOTAL PROTEIN 7.3 GM/DL (6.4-8.2)
[2017-03-07] MEDS ORDERED: REGADENOSON INJ 0.4 MG/5 ML SYR IV ONE (12:53)
--- NOTE | 2017-03-07 14:22 | RADRPT ---
EXAM DATE/TIME: 03/07/2017 12:39 [facility] COMPARISON: No previous studies available for comparison. INDICATIONS : Left sided chest pain. Coronary artery bypass graft. Angina. DOSE: 25.9 mCi Tc99m Myoview at stress. 8.2 mCi Tc99m Myoview at rest. 0.4 mg Lexiscan STRESS SYMPTOMS: None. EJECTION FRACTION: 27% MEDICAL HISTORY : Hypertension. Carcinoma, colon. SURGICAL HISTORY : Hysterectomy. Cholecystectomy. Colon resection. ENCOUNTER: Initial ACUITY: 1 day PAIN SCALE: 1/10 LOCATION: Left chest TECHNIQUE: The patient underwent pharmacologic stress with infusion of prescribed dose. Continuous ECG tracing was monitored during stress. Gated SPECT imaging was performed after stress and conventional SPECT i maging was performed at rest. The examination was performed on a SPECT/CT scanner, both attenuation and non-corrected datasets were reviewed. FINDINGS: DISTRIBUTION: The maximum perfused segment at stress is in the septal wall. PERFUSION STUDY: There is a summed stress score 16. There is a moderate to large inferior lateral and inferior wall de fect which is partially reversible GATED STUDY: Abnormal calculated ejection fraction of 27% with akinesis involving the anterior inferior and inferi or apical mcdermott. There is hypokinesis involving the septum and portions of the lateral wall. CONCLUSION: 1. Partially reversible moderate to large defect involving the inferior and inferior lateral mcdermott. 2. Markedly decreased calculated ejection fraction of 27% with akinesis involving portions of the inf erior and inferior apical mcdermott. RISK CATEGORY: High (>3% Annual Mortality Rate) Stanley Sanchez MD on March 07, 2017 at 14:13 Board Certified Radiologist. This report was verified electronically.
[2017-03-07] MEDS ORDERED: HEPARIN-D5W 25,000 U/250 ML 250 ML IV PRN (15:00)
[2017-03-07 15:38] LABS: HEMATOCRIT 36.1 % (35.0-46.0); HEMOGLOBIN 11.9 GM/DL (11.6-15.3); MEAN CELL VOLUME 92.2 FL (80.0-100.0); MEAN CORPUSCULAR HEMOGLOBIN 30.4 PG (27.0-34.0); MEAN PLATELET VOLUME 9.7 FL (7.0-11.0); PLATELET COUNT 200 TH/MM3 (150-450); RED BLOOD COUNT 3.91 MIL/MM3 (4.00-5.30); RED CELL DISTRIBUTION WIDTH 14.3 % (11.6-17.2); WHITE BLOOD COUNT 7.7 TH/MM3 (4.0-11.0)
[2017-03-07] MEDS: SODIUM CHLOR 0.9% 1000 ML INJ 1,000 ML IV SCH ×3 (15:47→23:37)
[2017-03-07 15:48] LABS: INTERNATIONAL NORMALIZED RATIO 1.1 RATIO; PROTHROMBIN TIME - PATIENT 10.8 SEC (9.8-11.6)
[2017-03-07] MEDS ORDERED: POTASSIUM CHLORIDE 10 MEQ CONTROLLED RELEASE TAB PO ONE (16:00)
--- NOTE | 2017-03-07 16:05 | HHI.PR ---
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 Medications Current Medications Medications (Trade) Dose Ordered Sig/Mike Route Start Time Stop Time Status Last Admin (NS Flush) 2 ml UNSCH PRN IV FLUSH 03/03/17 07:00 (NS Flush) 2 ml BID IV FLUSH 03/03/17 09:00 03/07/17 09:21 (Heparin Inj) 5,000 units Q8HR SQ 03/03/17 14:00 03/07/17 05:04 (D50w (Vial) Inj) 50 ml UNSCH PRN IV PUSH 03/03/17 07:00 03/07/17 06:58 (Glucagon Inj) 1 mg UNSCH PRN OTHER 03/03/17 07:00 (NovoLOG SUPPLEMENTAL SCALE) 1 ACHS SLIDING SCALE SQ 03/03/17 08:00 03/06/17 20:54 (Levaquin) 750 mg DAILY PO 03/04/17 09:00 03/07/17 09:20 (Tessalon) 100 mg TID PRN PO 03/03/17 16:00 (Norvasc) 5 mg DAILY PO 03/04/17 09:00 03/07/17 09:21 (Ecotrin Ec) 325 mg DAILY PO 03/03/17 16:15 03/07/17 09:21 (Lasix) 20 mg DAILY@0900,1800 PO 03/03/17 18:00 03/06/17 17:06 (Duoneb Neb) 1 ampule Q6HR NEB PRN NEB 03/03/17 16:15 (Synthroid) 88 mcg DAILY@0600 PO 03/04/17 06:00 03/07/17 05:04 (Levemir Inj) 20 units HS SQ 03/03/17 21:00 03/06/17 20:54 (KCl) 10 meq DAILY PO 03/06/17 09:00 03/07/17 09:20 (Nitrostat Sl) 0.4 mg Q5M PRN SL 03/06/17 01:15 03/06/17 01:50 (Xanax) 0.25 mg Q6H PRN PO 03/07/17 08:15 03/07/17 09:21 (CeleXA) 20 mg DAILY PO 03/07/17 09:00 03/07/17 09:21 Heparin Sodium/ Dextrose 250 ml @ 8.02 mls/hr TITRATE PRN IV 03/07/17 15:00 Sodium Chloride 1,000 ml @ 200 mls/hr Q5H IV 03/07/17 16:00 03/07/17 15:47 (KCl) 40 meq ONCE ONCE PO 03/07/17 16:00 03/07/17 16:01 03/07/17 15:47 Allergies Allergies Coded Allergies ciprofloxacin (Verified Allergy, Mild, Rash, 03/03/17) diatrizoate meglumine (Unverified Allergy, Mild, ILL, 09/21/16) gadobenic acid (Unverified Allergy, Mild, ILL, 09/21/16) gadodiamide (Unverified Allergy, Mild, ILL, 09/21/16) gadoteridol (Unverified Allergy, Mild, ILL, 09/21/16) iodixanol (Unverified Allergy, Mild, ILL, 09/21/16) iohexol (Unverified Allergy, Mild, ILL, 09/21/16) meperidine (Unverified Allergy, Mild, SHOCK, 09/21/16) penicillin G (Unverified Allergy, Mild, HIVES, 09/21/16) atorvastatin (Unverified Allergy, Unknown, unk, 09/21/16) pravastatin (Unverified Allergy, Unknown, unk, 09/21/16) simvastatin (Unverified Allergy, Unknown, unk, 09/21/16) Exam I&O / VS 03/07/17 03/07/17 03/08/17 15:00 23:00 07:00 Intake Total 0 ml Balance 0 ml Intake Oral 0 ml # Voids 2 # Bowel Movements 1 Vital Signs Date Time Temp Pulse Resp B/P (MAP) Pulse Ox O2 Delivery O2 Flow Rate FiO2 03/07/17 12:00 96.7 69 18 121/58 (79) 98 03/07/17 08:52 97.5 58 18 144/71 (95) 98 03/07/17 08:00 72 03/07/17 08:00 98 Room Air 22 03/07/17 05:53 03/07/17 00:31 97.0 60 16 131/79 (96) 95 03/06/17 23:40 96 21 03/06/17 21:20 98.7 66 18 127/75 (92) 97 03/06/17 20:00 67 03/06/17 20:00 97 Room Air 28 03/06/17 16:11 95 Nasal Cannula 2.00 Objective Radiology Results Last 48 hours Impressions Myocardial Perfusion Scan Nuc Med 03/07/17 0834 Signed Impressions: Service Date/Time: Tuesday, March 07, 2017 12:39 - CONCLUSION: 1. Partially reversible moderate to large defect involving the inferior and inferior lateral mcdermott. 2. Markedly decreased calculated ejection fraction of 27%% with akinesis involving portions of the inferior and inferior apical mcdermott. RISK CATEGORY: High (>3%% Annual Mortality Rate) Stanley Sanchez MD Brain MRI 03/07/17 0834 Signed Impressions: Service Date/Time: Tuesday, March 07, 2017 09:44 - CONCLUSION: 1. 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 2. Chronic ischemic small vessel vasculopathy. 3. No acute infarction Francisco J Carbajal MD Neck Magnetic Resonance Angiography 03/07/17 0000 Signed Impressions: Service Date/Time: Tuesday, March 07, 2017 09:44 - CONCLUSION: 1. Patent carotid arteries and vertebral arteries bilaterally. José Manuel Sandhu Jr., MD Head Magnetic Resonance Angiography 03/07/17 0000 Signed Impressions: Service Date/Time: Tuesday, March 07, 2017 09:44 - CONCLUSION: 1. Atherosclerotic disease generating a 50%% stenosis of the right P1 origin. No other significant stenoses observed. José Manuel Sandhu Jr., MD Carotid Artery Ultrasound 03/07/17 0000 Signed Impressions: Service Date/Time: Sunday, March 05, 2017 00:00 - CONCLUSION: 1. No hemodynamically significant stenosis in either carotid artery. Francisco J Carbajal MD Micro and Labs Laboratory Tests Test 03/07/17 11:00 03/07/17 15:12 Blood Urea Nitrogen 18 Creatinine 1.20 Random Glucose 112 Total Protein 7.3 Albumin 3.3 Calcium Level 8.8 Magnesium Level 2.2 Alkaline Phosphatase 69 Aspartate Amino Transf (AST/SGOT) 32 Alanine Aminotransferase (ALT/SGPT) 16 Total Bilirubin 0.8 Sodium Level 141 Potassium Level 3.3 Chloride Level 109 Carbon Dioxide Level 24.3 Anion Gap 8 Estimat Glomerular Filtration Rate 43 White Blood Count 7.7 Red Blood Count 3.91 Hemoglobin 11.9 Hematocrit 36.1 Mean Corpuscular Volume 92.2 Mean Corpuscular Hemoglobin 30.4 Mean Corpuscular Hemoglobin Concent 33.0 Red Cell Distribution Width 14.3 Platelet Count 200 Mean Platelet Volume 9.7 Prothrombin Time 10.8 Prothromb Time International Ratio 1.1 Activated Partial Thromboplast Time 25.4 Shahzad Ascencio MD Mar 07, 2017 16:05
[2017-03-07] MEDS ORDERED: methylPREDNISolone SOD SUCC 125 MG/2 ML VIAL ONE (17:34)
--- NOTE | 2017-03-07 17:49 | EKG ---
Date Performed: 03/06/2017 Time Performed: 01:05:37 PTAGE: 81 years EKG: Sinus rhythm WITH FIRST DEGREE AV BLOCK MARKED LEFT AXIS DEVIATION LEFT BUNDLE BRANCH BLOCK ST DEPRESSION, CONSID ER SUBENDOCARDIAL INJURY Consider inferior myocardial infarction-age undeterminate. ABNORMAL ECG PREVIOUS TRACING : 03/05/2017 12.09 DOCTOR: Jose Kennedy Interpretating Date/Time 03/07/2017 17:48:58
--- NOTE | 2017-03-07 17:51 | EKG ---
Date Performed: 03/06/2017 Time Performed: 12:48:20 PTAGE: 81 years EKG: Sinus rhythm POSSIBLE LEFT ATRIAL ENLARGEMENT LEFT BUNDLE BRANCH BLOCK Consider inferior myocardial infarction-ag e undeterminate. ABNORMAL ECG PREVIOUS TRACING : 03/06/2017 01.05 DOCTOR: Jose Kennedy Interpretating Date/Time 03/07/2017 17:49:31
[2017-03-07] MEDS ORDERED: FAMOTIDINE 20 MG/2 ML VIAL IV PUSH SCH (18:00)
[2017-03-07] MEDS ORDERED: methylPREDNISolone SOD SUCC 125 MG/2 ML VIAL IV PUSH SCH (18:00)
[2017-03-07] MEDS: NITROGLYCERIN 0.4 MG SL 25 TABS/BTL SL PRN ×2 (18:43→21:58)
[2017-03-07] MEDS ORDERED: IOHEXOL 350 MG/ML 50 ML BTL (for Cath Lab) OTHER ONE (19:10)
[2017-03-07] MEDS ORDERED: IOHEXOL 350 MG/ML 100 ML BTL (for Cath Lab) OTHER ONE (19:10)
[2017-03-07] MEDS ORDERED: HEPARIN-NS/PF INJ 1,000 ML ONE (19:16)
[2017-03-07] MEDS ORDERED: MIDAZOLAM HCL 2 MG/2 ML VIAL ONE (19:17)
--- NOTE | 2017-03-07 20:19 | CATHPROC ---
[employer] HIS Report Study Information Study Number Admission Scheduled Start Study Start [id number] Mar 03 2017 12:30PM 03/07/2017 Mar 07 2017 7:12PM [place] Service Cardiac Catheterization Admit Source Facility Department Transfer in from another acute care facility [facility] - Rat Poisoner Physician and Clinical Staff Initial Beata Solis Supervisor Mixing Arlette Alcala,RN Recorder Aline Buckley,RT(R) (BS) Ansleyub Erika Echols RCIS TECH2 Procedures Performed Procedure Location (Site) Vessel Name Angiogram LV AO Arch (A1) Aorta Angiogram LV LV Ventricle Coronary Angiograms LCA Left Coronary Coronary Angiograms HEWITT-LAD Left Coronary Coronary Angiograms SVG-DIAG Left Coronary Coronary Angiograms SVG-RCA Right Coronary Coronary Angiograms Gft. Stump 1 SVG Graft L Heart Cath Equipment Time Conventions Reservationist Description Size Mfg Part Number Used/Scraped TRANSDUCER, TRUWAVE [id number] 19:31 L[address] PANIAGUA * Used W/STOCKCOCK *[id number] 20:02 JamStar MEDICAL VASCADE, FR5 CLOSURE SYSTEM FR 5 Used *[id number] *[id number] *[id number] 19:31 Proxio INDUSTRIES PACK, CCL CUSTOM * Used *[id number] 19:31 Proxio PACER PEN, SKIN DUAL W/ RULER * Used *[id number] 19:33 MEDTRONIC JL 4.0 DXTERITY CATHETER FR 5 Used *[id number] PIG ANG 145 DXTERITY 19:34 MEDTRONIC FR 5 [id number] Used CATHETER [id number] 19:31 [employer] WIRE, 3MMJ .035 180CM 180CM Used *[id number] PROBE COVER, STERILE [id number] 19:31 [employer] * Used ULTRASOUND W/ GEL *[id number] 19:31 NAMIC MANIFOLD, 4 PORT * Used *[id number] 19:33 NAMIC TUBING, HIGH PRESSURE 48" 48" Used *[id number] 19:31 NAMIC TUBING, HIGH PRESSURE 48" 48" Used *[id number] 19:31 NYCOMED OMNIPAQUE, 350 MG, 150ML 150ML [id number] Used 19:41 NYCOMED OMNIPAQUE, 350 MG, 50ML 50ML [id number] Used 19:45 NYCOMED OMNIPAQUE, 350 MG, 50ML 50ML [id number] Used [id number] 19:31 BISHOP MEDICAL BLANKET,WARM AIR CCL * Used *[id number] 19:31 TERUMO MEDICAL SHEATH, FR5 TERUMO (10CM) FR 5 Used *[id number] Equipment Model, Serial, Lot Number and Expiration Data Description Model Number Serial Number Lot Number Expiration Date JL 4.0 DXTERITY CATHETER [id number] 09-09-2019 History: Current Medications Medication Dosage/Unit Route Frequency Last Date/Time Taken NORVASC ASA History: Allergies Allergy Reaction iohexol ILL diatrizoate meglumine ILL pravastatin unk simvastatin unk amlodipine unk gadoteridol ILL gadodiamide ILL meperidine SHOCK penicillin G HIVES iodixanol ILL atorvastatin unk gadobenic acid ILL ciprofloxacin Rash History: Risk Factors Family History of Hypertension Dyslipidemia Previous IL Previous Heart Failure Premature CAD Yes Yes Yes No No Prior Valve Prior PCI Prior CABG Prior CABGDate Surgery No No Yes 02/07/1995 Cerebrovascular Peripheral Artery Chronic Lung On Dialysis Diabetes Diabetes Therapy Disease Disease Disease No Yes No No Yes Insulin History: Symptoms/Diagnosis Selection Items Chest pain History: Stress Tests Stress or Imaging Studies Performed Yes Standard Exercise Stress Test No Stress Echo No Stress Test SPECT Stress Test SPECT Result Yes Positive Stress Test CMR No Cardiac CTA Coronary Calcium Score No No History: Other Current Smoker No Labs Hgb (g/dl) Hct (%) WBC (l/cumm) Platelets (thousands) 11.60-17.00 35.00-51.00 4.00-11.00 150.00-450.00 11.9 36.1 7.7 208 Glucose (mg/dl) BUN (mg/dl) Creatinine (mg/dl) BUN:Creatinine (1:x) 74.00-106.00 7.00-18.00 0.50-1.30 10.00-20.00 112 18 1.2 15 Na (meq/l) K (meq/l) 136.00-145.00 3.50-5.10 141 3.3 INR (PTT:PT) 0.90-1.10 1.1 Troponin I (ng/ml) CPK (u/l) CPK-MB (ng/ML) 0.02-0.05 26.00-308.00 0.50-3.60 0.05 53 Not Drawn Medication Medication Total Dose (Bolus/Oral) Medication Total Dosage/Unit 1% XYLOCAINE 20 mL BENADRYL 50 mg PEPCID 20 mg VERSED 0.5 mg Medications (Bolus/Oral) Medication Time Given Dosage/Unit Administered By Reason BENADRYL 03/07/2017 7:22:16 PM 50 mg Adamy, Arlette 50 mg BENADRYL given in lab by Arlette Alcala, DEBI in Left Antecubital via Peripheral IV. PEPCID 03/07/2017 7:23:43 PM 20 mg Adamy, Arlette 20 mg PEPCID given in lab by Arlette Alcala RN in Left Antecubital via Peripheral IV. VERSED 03/07/2017 7:36:14 PM 0.5 mg Adamy, Arlette 0.5 mg VERSED given in lab by Arlette Alcala, DEBI in Left Antecubital via Peripheral IV. 1% XYLOCAINE 03/07/2017 7:37:59 PM 20 mL Beata Green 20 mL 1% XYLOCAINE given in lab by Beata Green in Right Groin via Subcutaneous. Medication (Drip) Medication Time Given Dosage/Unit Concentration/Unit Diluent (ml) Solution IV Solutions 03/07/2017 7:12:33 PM 0 mL (IV) 1000 NaCl .9 IV Solutions given in lab by Arlette Alcala RN in Left Antecubital via Peripheral IV. Pump/Drip David w = 30 ml/hr using NaCl .9. Initial Case Assessment Cardiovascular HR Rhythm NIBP Chest Pain 87 reg 140/78 9 Edema Present Skin color Skin None Normal Warm Dry Circulatory - Right Pulses Dorsalis Pedis Femoral 1 2 Scale (0,1,2,3,4,d) Circulatory - Left Pulses Dorsalis Pedis Femoral 1 2 Scale (0,1,2,3,4,d) Circulatory - Lower Extremities Color Lower Right Color Lower Left Normal Normal Neurological State Oriented to time-place- Alert Moves all extremities person Respiration - General Respiration Rate SpO2 (%) O2 (lpm) (B/min) 20 95 2 Chronological Log Time Study Chronological Log 19:10:11 Patient arrived via Bed. 19:10:15 Patient Name, D.O.B, / Armband Verified By RMinerva 19:12:19 Consent signed by the physician and the patient and verified by the Rat Poison[facility] staff. 19:12:19 Pre-op and post- op instructions given; patient acknowledges understanding of instruction s. 19:12:20 Verbal Stimulation=2 Physical Stimulation=2 Airway=2 Respiration=2 TOTAL=8. (0=absent, 1= limited, 2=present) 19:12:21 Presedation assessment performed by Rat Poisoner RN. 19:12:28 Patient has been NPO for More than 6Hrs. 19::29 Skin Breakdown none per pt 19::29 Patient Warmer Placed on the Table. 19:12:32 Liana Prominences Protected 19:12:32 A # 20 IV was noted in the Antecubital (left). Grade = 0 IV Solutions given in lab by Arlette Alcala, RN in Left Antecubital via Peripheral IV. Pump/Dr ip Flow = 30 ml/hr using 19:12:33 NaCl .9. 19:12:34 History and physical on the chart or being dictated. Assessment: Initial Case, HR=87 BPM, Rhythm=reg, TOBH=153/78 mmhg, Chest Pain=9, Edema=None, Co lala=Normal, Skin = Warm, Dry Right Pulses: Koby Ped=1, Femoral=2 Left Pulses: Koby Ped=1, Femoral=2 19:12:35 Lower Right Extremities: Color=Normal Lower Left Extremities: Color=Normal Neurological: State=Alert, Ox3, GOTTI Respiration: Resp=20 B/min, SpO2=95 %, O2=2 lpm Vitals capture started with the following parameters, Patient=Adult, Interval=5 min, Initial Pr pcjjvc=113 mmHg, 19:15:18 Deflation Rate=5 mmHg, Cuff placed on Left Arm 19:15:55 HR=86 bpm, BNQZ=679/78 mmhg, SpO2=92.0 %, Resp=19 B/min, Pain=9, Ana=10, Schmitz=2 19:20:52 HR=86 bpm, LJOF=872/78 mmhg, SpO2=95.0 %, Resp=23 B/min, Pain=9, Ana=10, Schmitz=2 19:22:16 50 mg BENADRYL given in lab by Arlette Alcala, RN in Left Antecubital via Peripheral IV. 19:23:43 20 mg PEPCID given in lab by Arlette Alcala RN in Left Antecubital via Peripheral IV. 19:25:53 HR=88 bpm, XZCX=910/84 mmhg, SpO2=94.0 %, Resp=23 B/min, Pain=9, Ana=10, Schmitz=2 19:28:37 Bilateral groins prepped with 2% chlorhexidine, and draped after a 3 minute waiting time. 19:30:54 HR=89 bpm, TNUC=367/74 mmhg, SpO2=92.0 %, Resp=8 B/min, Pain=9, Ana=10, Schmitz=2 19:32:26 Pressure channel 1 zeroed. 19:34:19 Reference ECG taken 19:35:51 HR=90 bpm, RNOB=417/77 mmhg, SpO2=92.0 %, Resp=11 B/min, Pain=9, Ana=10, Schmitz=2 19:36:14 0.5 mg VERSED given in lab by Arlette Alcala, DEBI in Left Antecubital via Peripheral IV. Time Out. Correct patient, correct procedure, correct physician, power injector loaded with con trast with surgical team 19:36:25 present. Time Out Concurred by MD and individual staff in procedure. 19:36:48 Case Start 19:37:59 20 mL 1% XYLOCAINE given in lab by Beata Green in Right Groin via Subcutaneous. 19:38:55 Access site was Right Femoral Artery using ultrasound 19:39:05 A SHEATH, FR5 TERUMO (10CM) FR 5 was advanced into the Fem Art (right) using the Percutaneo us technique. A PIG ANG 145 DXTERITY CATHETER FR 5 was advanced over a wire. OMNIPAQUE, 350 MG, 150ML 150ML w as used 19:39:12 for injections. Recorded Pressure: LV, HR=85, Condition=Condition 1 19:40:16 (Left Ventricle) LV 107/9/20 19:40:30 The LV was injected at 10 cc/sec for a total of 30. OMNIPAQUE, 350 MG, 50ML 50ML used. 19:40:54 HR=82 bpm, NEWL=101/72 mmhg, SpO2=93.0 %, Resp=17 B/min, Pain=9, Ana=10, Schmitz=2 Recorded Pressure: LV, Ao, HR=90, Condition=Condition 1 19:42:00 (Left Ventricle) LV 119/21/32, (Aorta) Ao 120/61/86 Recorded Pressure: Ao, HR=90, Condition=Condition 1 19:42:21 (Aorta) Ao 120/61/86 19:43:55 The AO Arch (A1) was injected at 20 cc/sec for a total of 40. OMNIPAQUE, 350 MG, 50ML 50ML used. 19:44:37 Catheter was removed A JL 4.0 DXTERITY CATHETER FR 5 was advanced over a wire. OMNIPAQUE, 350 MG, 150ML 150ML was us ed for 19:44:52 injections. 19:45:56 HR=90 bpm, VUAM=790/72 mmhg, SpO2=92.0 %, Resp=18 B/min, Pain=9, Ana=10, Schmitz=2 19:46:48 The LCA was injected and visualized at various angles. OMNIPAQUE, 350 MG, 150ML 150ML used . 19:48:34 Catheter was removed A AR MOD INFINITI CATHETER FR 5 was advanced over a wire. OMNIPAQUE, 350 MG, 150ML 150ML was u sed for 19:48:36 injections. 19:50:50 HR=90 bpm, QHLS=065/69 mmhg, SpO2=91.0 %, Resp=19 B/min, Pain=9, Ana=10, Schmitz=2 19:51:37 The SVG-RCA was injected and visualized at various angles. OMNIPAQUE, 350 MG, 150ML 150ML used. 19:53:37 The Gft. Stump 1 was injected and visualized at various angles. OMNIPAQUE, 350 MG, 150ML 1 50ML used. 19:54:18 The SVG-DIAG was injected and visualized at various angles. OMNIPAQUE, 350 MG, 150ML 150ML used. 19:55:52 HR=93 bpm, NIBP=90/61 mmhg, SpO2=92.0 %, Resp=19 B/min, Pain=9, Ana=10, Schmitz=2 19:56:15 Catheter was removed A LISA INFINITI CATHETER FR 5 was advanced over a wire. OMNIPAQUE, 350 MG, 150ML 150ML was used for 19:56:17 injections. 19:57:59 The HEWITT-LAD was injected and visualized at various angles. OMNIPAQUE, 350 MG, 150ML 150ML used. 19:59:08 Catheter was removed 19:59:24 Case End 20:00:51 HR=93 bpm, NIBP=91/49 mmhg, SpO2=89.0 %, Resp=21 B/min, Pain=0, Ana=10, Schmitz=2 20:01:42 An injection in the Fem Art (right) was made through the SHEATH, FR5 TERUMO (10CM) FR 5. 20:05:26 VASCADE, FR5 CLOSURE SYSTEM FR 5 placement in the Fem Art (right) 20:05:50 HR=92 bpm, NIBP=88/58 mmhg, SpO2=88.0 %, Resp=20 B/min, Pain=0, Ana=10, Schmitz=2 20:06:19 Catheter(s) removed without difficulty 20:06:22 No case complications noted. 20:06:25 Bedside Report will be given. 20:06:26 Implantable Device card placed in patient's chart. 20:06:29 A Left Heart Cath was performed. 20:08:57 [facility]IC called. Spoke to Ashly. 20:10:49 HR=92 bpm, NIBP=89/62 mmhg, SpO2=89.0 %, Resp=21 B/min, Pain=0, Ana=10, Schmitz=2 20:13:52 Vitals capture stopped. 20:15:00 Patient moved to [facility] End Study - Contrast Media Used In Study Contrast Total Opened (mL) Total Used (mL) Total Wasted (mL) Omnipaque 120 120 0 End Study - Maximum Contrast Load Max Contrast Load (mL) 278.8 End Study - Radiation Exposure Fluoro Time (minutes) 5.3 End Study - Patient Disposition Complications Transferred To Interventional Outcome No Telemetry Bed No attempt made
[2017-03-07] MEDS: CLOPIDOGREL 300 MG TAB PO ONE ×2 (20:30→21:57)
[2017-03-07] MEDS: ISOSORBIDE MONONITRATE 30 MG TAB PO ONE ×2 (20:30→21:58)
[2017-03-07] MEDS: INSULIN DETEMIR 100 UNITS/ML VIAL SQ SCH (21:00)
[2017-03-07] MEDS: CARVEDILOL 3.125 MG TAB PO SCH ×2 (21:00→21:57)
--- NOTE | 2017-03-07 21:42 | MB ---
cc: FREDERICK SIMS DATE OF CONSULTATION 03/07/2017 REASON FOR CONSULTATION Ms. Corley is a 81-year-old white female with a history of four vessel bypass, presented with shortness of breath and productive cough. She also had lightheadedness and presyncope. She initially did not have any chest discomfort , but developed severe angina shortly after her transfer to [facility] from [facility]. The patient underwent nuclear myocardial perfusion study earlier today which was a high risk study, showing partially reversible moderate to large inferior and inferolateral perfusion defect and ejection fraction of 27% with inferior apical akinesis. The patient was referred for cardiac catheterization. PAST MEDICAL HISTORY Positive for: 1. Four vessel coronary artery bypass. 2. Colon cancer treated with chemotherapy. 3. Remote stroke. 4. History of dyslipidemia. 5. Diabetes mellitus. 6. Cholecystectomy. 7. Hysterectomy. 8. Tonsillectomy. 9. Graves disease. 10. Hypothyroidism. MEDICATIONS Include: 1. Amlodipine. 2. Aspirin. 3. Synthroid. 4. Vitamin D. 5. Fish oil. 6. Potassium. 7. Lasix. 8. Insulin. ALLERGIES SIMVASTATIN, PRAVASTATIN, ATORVASTATIN, AMLODIPINE, PENICILLIN, MEDPERIDINE, IOHEXOL. SOCIAL HISTORY The patient does not smoke. She does no drink alcohol. She is . FAMILY HISTORY Positive for heart disease. REVIEW OF SYSTEMS Otherwise negative. PHYSICAL EXAMINATION VITAL SIGNS: Blood pressure 137/59, pulse 72 and regular. HEENT: Negative. NECK: 2+ carotid upstrokes. No bruits. LUNGS: Clear. HEART: Regular with no murmur, gallop or rub. ABDOMEN: Soft. No bruits. EXTREMITIES: Without edema. 1=2+ distal pulses. NEUROLOGIC: Examination is grossly intact. EKG was reviewed and showed sinus rhythm, left axis, PACs, first-degree AV block , diffuse ST-T changes and mild interventricular conduction delay. LABORATORY DATA Hemoglobin 11.9. Potassium 3.3, creatinine 1.2. Troponin 0.02, 0.05, and 0.05. CK 49 ALT normal. DIAGNOSES 1. Unstable angina. 2. High-risk nuclear myocardial perfusion study. 3. Coronary artery disease, history of four vessel coronary bypass. 4. Diabetes mellitus. 5. Dyslipidemia. DISPOSITION Ms. Corley will undergo cardiac catheterization and coronary intervention if necessary. I recommend to continue aggressive modification of her cardiac risk factors. The patient and her family understand the risks and benefits, and wish to proceed. MD ACACIA Awad/KK /5:17 PM /9:17 PM JESSENIA
[2017-03-08] VITALS (9 sets, daily range): BP systolic 50–78; BP diastolic 27–53; PULSE 0–73; RESP 24–30; TEMP 96; O2SAT 72–100
[2017-03-08] MEDS ORDERED: PROPOFOL 500 MG/50 ML INJ 50 ML ONE (00:59)
[2017-03-08] MEDS ORDERED: SODIUM BICARBONATE 8.4% INJ 150 MEQ in DEXTROSE 5% IN WATE 1000ML INJ 1,000 ML IV SCH ×2 (01:00)
[2017-03-08] MEDS ORDERED: SODIUM BICARBONATE 8.4% INJ 50 MEQ/50 ML SYR ONE ×2 (01:11→02:44)
--- NOTE | 2017-03-08 01:15 | HHI.PR ---
Addendum to Inpatient Note Addendum Reason: Additional Documentation Additional Information [facility]/Code Note Resident team was called at 0023 on 03/08/17 for respiratory distress. Upon arrival nursing staff reported that the patient had had a cardiac catheterization earlier in the day and had returned around 1999. Since then she had been having some difficulty breathing, decreased blood pressure in the 80s to 70s systolic, and had been saturating well until recently. They report that immediately prior to arrival the patient had exhibited increased respiratory distress, and they have been having difficulty obtaining a blood pressure. They reported that the patient had not received any fluid boluses at this point because of a low ejection fraction, they also report that the patient had yet to void since returning to the floor, also a bedside glucose had recently been checked which was somewhere in the 300s. The patient at this point was nonverbal , did respond to painful stimuli, was lying in bed with obvious respiratory distress. She was on nonrebreather mask at the time, it was recommended that an intubation cart/tray should be obtained for likely imminent intubation. The patient quickly became unresponsive, no pulse was palpable at the carotid artery , a code was called and CPR was started. Epinephrine was administered, several rounds of CPR took place, Doctor Corral arrived and intubated the patient. During intubation a palpable pulse was identified at both the carotid and femoral arteries. Compressions were stopped, the patient was intubated, care was transferred to the electroencephalographic technologist and patient was transferred to the ICU. Please see code information sheet for more details. Second Code Note Resident team was paged for a CODE BLUE shortly after 0400. When we arrived at the patient's room Dr. Corral was running an active code. Patient was already intubated, had received several doses of epinephrine, bicarbonate, and compressions were being performed. Several rounds of CPR were performed without shockable rhythm until a pulse returned and a bradycardic rhythm was established , pulse in the 40s to 50s. Shortly thereafter an order for an epinephrine drip was given and prior to receiving the drip the pulse increased, reaching the 80s to low 90s. The case was discussed with the electroencephalographic technologist as he was to continue to manage the patient at this point. Please see code information sheet for more details. Stanley Carney MD R1 Mar 08, 2017 01:15
[2017-03-08] MEDS ORDERED: TERBUTALINE INJ 1 MG/ML AMP SQ PRN ×3 (01:45→03:15)
[2017-03-08] MEDS ORDERED: DOPamine 800 MG/D5W PREMIX 500 ML IV PRN (01:45)
[2017-03-08] MEDS ORDERED: PROPOFOL 1000 MG/100 ML INJ 100 ML IV PRN (02:30)
[2017-03-08] MEDS ORDERED: PROPOFOL 1000 MG/100 ML IV PRN (02:45)
[2017-03-08] MEDS ORDERED: EPINEPHrine HCL (1:10,000) 1 MG/10 ML SYRINGE ONE (02:53)
[2017-03-08] MEDS ORDERED: VASOPRESSIN INJ 40 UNITS in DEXTROSE 5% IN WATER 100ML INJ 98 ML IV SCH ×4 (03:14→03:30)
[2017-03-08] MEDS ORDERED: PHENYLEPHRINE INJ 40 MG in DEXTROSE 5% IN WATE 500 ML INJ 496 ML IV PRN ×2 (03:15)
[2017-03-08] MEDS ORDERED: MIDAZOLAM HCL 2 MG/2 ML VIAL IV PUSH PRN (03:15)
[2017-03-08] MEDS ORDERED: fentaNYL DRIP 250 ML IV PRN (03:15)
[2017-03-08] MEDS ORDERED: ALBUMIN 25% INJ 100 ML IV ONE (03:15)
[2017-03-08] MEDS ORDERED: PHENYLEPHRINE 40 MG in D5W 500 ML IV PRN (03:15)
[2017-03-08] MEDS ORDERED: fentaNYL 2,500 MCG/NS 250 ML IV PRN (03:30)
--- NOTE | 2017-03-08 03:40 | RADRPT ---
EXAM DATE/TIME: 03/08/2017 01:42 [place] COMPARISON: CHEST SINGLE AP, March 03, 2017, 4:33. INDICATIONS : Short of breath. post intubation, central line placement. MEDICAL HISTORY : Cerebrovascular disease. SURGICAL HISTORY : CABG. ENCOUNTER: Subsequent ACUITY: 3 days PAIN SCORE: 0/10 LOCATION: Bilateral chest FINDINGS: A single view of the chest demonstrates endotracheal tube in good position. Right central line in rig ht atrium. Mild edema pattern similar to March 03. Trace pleural fluid. CONCLUSION: 1. Endotracheal tube and right central line in good position. Mild edema pattern. Laron Salazar MD on March 08, 2017 at 3:36 Board Certified Radiologist. This report was verified electronically.
--- NOTE | 2017-03-08 03:55 | PD.CONS ---
[facility] Service Critical Care Medicine Consult Requested By Primary Care Physician Eliazar Hopkins MD History of Present Illness 81-year-old female with a history of three vessel bypass presented with shortness of breath and productive cough. She also had lightheadedness, and presyncope. She underwent nuclear myocardial perfusion study which showed partially reversible moderate to large inferior and lateral defect and ejection fraction of 27% with inferior apical akinesis. She was taken to cardiac catheterization lab for a coronary angiogram that showed diffuse obstructive disease including graft vessels without option of any further intervention. While in the CICU unit she suffered cardiac/respiratory arrest, ACLS protocol was initiated and the patient regained spontaneous circulation after 1 cycle of CPR and injection of epinephrine. She was intubated during the ACLS protocol and was transferred to medical ICU. The center line and A-line were placed and patient was started on dopamine, later on Kyle-Synephrine and vasopressin drips. She suffered another cardiac arrest requiring multiple rounds of CPR and epinephrine injections. She again regained spontaneous circulation after 20 minutes of ACLS protocol, however remains severely hemodynamically unstable. Review of Systems ROS Unobtainable patient is sedated and intubated Past Family Social History Allergies: Coded Allergies: ciprofloxacin (Verified Allergy, Mild, Rash, 03/03/17) diatrizoate meglumine (Unverified Allergy, Mild, ILL, 09/21/16) gadobenic acid (Unverified Allergy, Mild, ILL, 09/21/16) gadodiamide (Unverified Allergy, Mild, ILL, 09/21/16) gadoteridol (Unverified Allergy, Mild, ILL, 09/21/16) iodixanol (Unverified Allergy, Mild, ILL, 09/21/16) iohexol (Unverified Allergy, Mild, ILL, 09/21/16) meperidine (Unverified Allergy, Mild, SHOCK, 09/21/16) penicillin G (Unverified Allergy, Mild, HIVES, 09/21/16) atorvastatin (Unverified Allergy, Unknown, unk, 09/21/16) pravastatin (Unverified Allergy, Unknown, unk, 09/21/16) simvastatin (Unverified Allergy, Unknown, unk, 09/21/16) Past Medical History Coronary artery bypass. Colon cancer treated with chemotherapy. Remote stroke. History of dyslipidemia. Diabetes mellitus. Grafts disease Hypothyroidism Past Surgical History Cholecystectomy. Hysterectomy. Tonsillectomy. CABG Reported Medications Reported Meds & Active Scripts Active Levaquin (Levofloxacin) 750 Mg Tablet 750 Mg PO DAILY 6 Days Reported Pepcid (Famotidine) 20 Mg Tab 20 Mg PO HS Cozaar (Losartan Potassium) 25 Mg Tab 12.5 Mg PO DAILY Pepcid (Famotidine) 20 Mg Tab 20 Mg PO HS Amlodipine (Amlodipine Besylate) 5 Mg Tab 5 Mg PO DAILY Aspirin EC (Aspirin) 325 Mg Tabdr 325 Mg PO DAILY Synthroid (Levothyroxine Sodium) 25 Mcg Tab 88 PO DAILY Vitamin D-1000 (Cholecalciferol) 1,000 Unit Tab 1,000 Units PO DAILY Fish Oil + D3 (Fish Oil-Cholecalciferol) 1,200-1,000 Mg-Unit Cap 1 Cap PO DAILY Potassium Chloride ER (Potassium Chloride) 8 Meq Cap Unknown Dose PO BID Lasix (Furosemide) 20 Mg Tab 20 Mg PO BID Novolog Inj (Insulin Aspart) 1,000 Unit/10 Ml Vial 0 SQ DIRECTED Sliding Scale as directed. Lantus Inj (Insulin Glargine) 1,000 Unit/10 Ml Vial 20 Units SQ HS [Atnol] Active Ordered Medications Current Medications Medications (Trade) Dose Ordered Sig/Mike Route PRN Reason Start Time Stop Time Status Last Admin Dose Admin Sodium Chloride (NS Flush) 2 ml UNSCH PRN IV FLUSH FLUSH AFTER USING IV ACCESS 03/03/17 07:00 Sodium Chloride (NS Flush) 2 ml BID IV FLUSH 03/03/17 09:00 03/07/17 09:21 Dextrose (D50w (Vial) Inj) 50 ml UNSCH PRN IV PUSH HYPOGLYCEMIA-SEE COMMENTS 03/03/17 07:00 03/07/17 06:58 Glucagon (Glucagon Inj) 1 mg UNSCH PRN OTHER HYPOGLYCEMIA-SEE COMMENTS 03/03/17 07:00 Insulin Aspart (NovoLOG SUPPLEMENTAL SCALE) 1 ACHS SLIDING SCALE SQ 03/03/17 08:00 03/07/17 22:10 Levofloxacin (Levaquin) 750 mg DAILY PO 03/04/17 09:00 03/07/17 09:20 Benzonatate (Tessalon) 100 mg TID PRN PO COUGH 03/03/17 16:00 Aspirin (Ecotrin Ec) 325 mg DAILY PO 03/03/17 16:15 03/07/17 09:21 Albuterol/ Ipratropium (Duoneb Neb) 1 ampule Q6HR NEB PRN NEB WHEEZING 03/03/17 16:15 Levothyroxine Sodium (Synthroid) 88 mcg DAILY@0600 PO 03/04/17 06:00 03/07/17 05:04 Insulin Detemir (Levemir Inj) 20 units HS SQ 03/03/17 21:00 03/06/17 20:54 Potassium Chloride (KCl) 10 meq DAILY PO 03/06/17 09:00 03/07/17 09:20 Nitroglycerin (Nitrostat Sl) 0.4 mg Q5M PRN SL CHEST PAIN 03/06/17 01:15 03/07/17 21:58 Alprazolam (Xanax) 0.25 mg Q6H PRN PO anxiety 03/07/17 08:15 03/07/17 09:21 Citalopram Hydrobromide (CeleXA) 20 mg DAILY PO 03/07/17 09:00 03/07/17 09:21 Heparin Sodium/ Dextrose 250 ml @ 8.02 mls/hr TITRATE PRN IV Coagulation Management 03/07/17 15:00 03/08/17 02:39 Methylprednisolone Sodium Succinate (SoluMEDROL INJ) 125 mg MANAGER OF DATA IV PUSH 03/07/17 18:00 03/08/17 17:59 Famotidine (Pepcid Inj) 20 mg MANAGER OF DATA IV PUSH 03/07/17 18:00 03/08/17 17:59 Carvedilol (Coreg) 3.125 mg Q12HR PO 03/07/17 21:00 Isosorbide Mononitrate (Imdur) 30 mg DAILY@07 PO 03/08/17 07:00 Clopidogrel Bisulfate (Plavix) 75 mg DAILY PO 03/08/17 09:00 EZETIMIBE (Zetia) 10 mg DAILY PO 03/08/17 09:00 Sodium Bicarbonate 150 meq/Dextrose 1,150 ml @ 75 mls/hr [id number] IV 03/08/17 01:00 03/08/17 02:10 Dopamine HCl/ Dextrose 500 ml @ 12.544 mls/ hr TITRATE PRN IV Blood Pressure Management 03/08/17 01:45 03/08/17 02:12 Terbutaline Sulfate (Brethine Inj) 1 mg UNSCH PRN SQ For Extravasation 03/08/17 01:45 Chlorhexidine Gluconate (Peridex 0.12% Liq) 15 ml BID@08,20 MT 03/08/17 08:00 Propofol 100 ml @ 2.007 mls/ hr TITRATE PRN IV SEDATION 03/08/17 02:45 Phenylephrine HCl 40 mg/Dextrose 500 ml @ 30 mls/hr TITRATE PRN IV Blood pressure management 03/08/17 03:15 Midazolam HCl (Versed Inj) 2 mg Q1H PRN IV PUSH sedation/agitation 03/08/17 03:15 Albumin Human 100 ml @ 60 mls/hr ONCE ONCE IV 03/08/17 03:15 03/08/17 04:54 03/08/17 03:21 Vasopressin 40 units/Dextrose 100 ml @ 1.5 mls/hr Q24H IV 03/08/17 03:30 03/08/17 03:32 Fentanyl Citrate 250 ml @ 5 mls/hr TITRATE PRN IV Sedation 03/08/17 03:30 Family History Positive for heart disease. Social History The patient does not smoke. She does no drink alcohol. She is . Physical Exam Vital Signs Vital Signs Date Time Temp Pulse Resp B/P (MAP) Pulse Ox O2 Delivery O2 Flow Rate FiO2 03/08/17 03:32 55 65/44 03/08/17 02:12 80 107/51 03/08/17 00:50 100 100 03/08/17 00:18 72 15.00 100 03/08/17 00:15 66 24 74/53 (60) 77 03/07/17 23:15 103 20 84/62 (69) 98 03/07/17 22:45 98 20 104/71 (82) 95 03/07/17 22:15 91 20 115/65 (82) 89 03/07/17 21:45 101 20 106/69 (81) 94 03/07/17 21:15 92 16 120/81 (94) 92 03/07/17 21:00 92 16 121/75 (90) 95 03/07/17 20:45 95 16 103/70 (81) 96 03/07/17 20:30 92 03/07/17 20:30 Nasal Cannula 6.00 03/07/17 20:30 96.0 92 16 102/71 (81) 91 03/07/17 16:00 96.4 72 18 137/59 (85) 98 03/07/17 12:00 96.7 69 18 121/58 (79) 98 03/07/17 08:52 97.5 58 18 144/71 (95) 98 03/07/17 08:00 72 03/07/17 08:00 98 Room Air 22 03/07/17 05:53 Physical Exam GENERAL: Elderly female sedated and intubated SKIN: Warm and dry. HEAD: Normocephalic. EYES: No scleral icterus. No injection or drainage. NECK: Supple, trachea midline. No JVD or lymphadenopathy. CARDIOVASCULAR: Regular rate and rhythm without murmurs, gallops, or rubs. RESPIRATORY: Breath sounds equal bilaterally. No accessory muscle use. GASTROINTESTINAL: Abdomen soft, non-tender, nondistended. MUSCULOSKELETAL: No cyanosis, or edema. BACK: Nontender without obvious deformity. NEURO EXAM: Mental Status: The patient is sedated and intubated. Laboratory Laboratory Tests Test 03/07/17 11:00 03/07/17 15:12 03/08/17 00:32 03/08/17 01:10 Blood Urea Nitrogen 18 Creatinine 1.20 Random Glucose 112 Total Protein 7.3 Albumin 3.3 Calcium Level 8.8 Magnesium Level 2.2 Alkaline Phosphatase 69 Aspartate Amino Transf (AST/SGOT) 32 Alanine Aminotransferase (ALT/SGPT) 16 Total Bilirubin 0.8 Sodium Level 141 Potassium Level 3.3 Chloride Level 109 Carbon Dioxide Level 24.3 Anion Gap 8 Estimat Glomerular Filtration Rate 43 White Blood Count 7.7 Red Blood Count 3.91 Hemoglobin 11.9 Hematocrit 36.1 Mean Corpuscular Volume 92.2 Mean Corpuscular Hemoglobin 30.4 Mean Corpuscular Hemoglobin Concent 33.0 Red Cell Distribution Width 14.3 Platelet Count 200 Mean Platelet Volume 9.7 Prothrombin Time 10.8 Prothromb Time International Ratio 1.1 Activated Partial Thromboplast Time 25.4 Blood Gas Puncture Site LT RADIAL Blood Gas Patient Temperature 98.6 Blood Gas HCO3 12 Blood Gas Base Excess -18.0 Blood Gas Oxygen Saturation 84 Arterial Blood pH 6.97 Arterial Blood Partial Pressure CO2 53 Arterial Blood Partial Pressure O2 78 Arterial Blood Oxygen Content 14.7 Arterial Blood Carboxyhemoglobin 0.0 Arterial Blood Methemoglobin 1.3 Blood Gas Hemoglobin 12.5 Oxygen Delivery Device Non-Rebreathing Mask Blood Gas Liter Flow 15 Blood Gas Inspired Oxygen 100 Nasal Screen MRSA (PCR) MRSA DETECTED Test 03/08/17 03:15 Blood Gas Puncture Site ART LINE Blood Gas Patient Temperature 98.6 Blood Gas HCO3 12 Blood Gas Base Excess -13.2 Blood Gas Oxygen Saturation 97 Arterial Blood pH 7.32 Arterial Blood Partial Pressure CO2 24 Arterial Blood Partial Pressure O2 143 Arterial Blood Oxygen Content 14.8 Arterial Blood Carboxyhemoglobin 0.4 Arterial Blood Methemoglobin 1.3 Blood Gas Hemoglobin 10.7 Oxygen Delivery Device VENTILATOR Blood Gas Ventilator Setting PRVC/AC Blood Gas Inspired Oxygen 100 Result Diagram: 03/07/17 1512 03/07/17 1100 Imaging Last 24 hours Impressions Chest X-Ray 03/08/17 0000 Signed Impressions: Service Date/Time: Wednesday, March 08, 2017 01:42 - CONCLUSION: 1. Endotracheal tube and right central line in good position. Mild edema pattern. Laron Salazar MD Myocardial Perfusion Scan Nuc Med 03/07/17 0834 Signed Impressions: Service Date/Time: Tuesday, March 07, 2017 12:39 - CONCLUSION: 1. Partially reversible moderate to large defect involving the inferior and inferior lateral mcdermott. 2. Markedly decreased calculated ejection fraction of 27%% with akinesis involving portions of the inferior and inferior apical mcdermott. RISK CATEGORY: High (>3%% Annual Mortality Rate) Stanley Sanchez MD Brain MRI 03/07/17 0834 Signed Impressions: Service Date/Time: Tuesday, March 07, 2017 09:44 - CONCLUSION: 1. 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 2. Chronic ischemic small vessel vasculopathy. 3. No acute infarction Francisco J Carbajal MD Septic Shock Reassessment Septic shock perfusion: reassessment completed Assessment and Plan Assessment and Plan Respiratory failure - Intubated during CODE BLUE - No weaning until hemodynamically stable - ABG and CXR daily - Vent bundle - DuoNeb's when necessary Cardiogenic shock - Severe underlying coronary artery disease - Diffuse obstructive disease including CABG grafts - No further intervention available - Continue vasopressor support - Heparin drip per ACS protocol - Considering this as a terminal condition we'll consult palliative care Diabetes mellitus - Insulin sliding scale Congestive heart failure - EF 27% per nuclear medicine perfusion scan - Vasopressor support Dyslipidemia - Atorvastatin Hypothyroidism - Levothyroxine DVT GI prophylaxis - Teds SCDs - Heparin drip per ACS protocol - Pepcid Critical Care: The total critical care time was 105 minutes. Time to perform other separately billable procedures was not included in the critical care time. Marky Corral MD Mar 08, 2017 3:55 am
[2017-03-08 03:58] LABS: BASOPHIL % 0.1 % (0.0-2.0); HEMATOCRIT 24.7 % (35.0-46.0); LYMPH % 7.4 % (9.0-44.0); LYMPHOCYTE # 0.8 TH/MM3 (1.0-4.8); MEAN CORPUSCULAR HEMOGLOBIN 30.9 PG (27.0-34.0); MEAN CORPUSCULAR HGB CONC 32.5 % (32.0-36.0); MEAN PLATELET VOLUME 9.6 FL (7.0-11.0); MONO % 3.3 % (0.0-8.0); MONOCYTE # 0.4 TH/MM3 (0-0.9); NEUT % 89.2 % (16.0-70.0); PLATELET COUNT 153 TH/MM3 (150-450); RED CELL DISTRIBUTION WIDTH 14.7 % (11.6-17.2); WHITE BLOOD COUNT 11.2 TH/MM3 (4.0-11.0)
[2017-03-08] MEDS ORDERED: EPINEPHrine HCL (1:1000) 1 MG/ML VIAL ONE ×2 (04:21→04:29)
[2017-03-08] MEDS ORDERED: EPINEPHrine (1:1000) INJ 2 MG in DEXTROSE 5% IN WATER INJ 250 ML IV PRN ×2 (04:45)
--- NOTE | 2017-03-08 05:22 | PD.PROCEDR ---
Procedure Note Procedure Centerline placement A time-out was completed verifying correct patient, procedure, site, positioning , and special equipment if applicable. The patient was placed in a dependent position appropriate for central line placement based on the vein to be cannulated. The patients right shoulder was prepped and draped in sterile fashion. 1% Lidocaine was used to anesthetize the surrounding skin area. A triple lumen 9-Maltese Cordis catheter was introduced into the the right subclavian vein using the Seldinger technique. The catheter was threaded smoothly over the guide wire and appropriate blood return was obtained. Each lumen of the catheter was evacuated of air and flushed with sterile saline. The catheter was then sutured in place to the skin and a sterile dressing applied. Perfusion to the extremity distal to the point of catheter insertion was checked and found to be adequate. Estimated Blood Loss: 1ml The patient tolerated the procedure well and there were no complications. Marky Corral MD Mar 08, 2017 5:22 am
--- NOTE | 2017-03-08 05:23 | PD.PROCEDR ---
Procedure Note Procedure Arterial line placement A time-out was completed verifying correct patient, procedure, site, positioning , and special equipment if applicable. Allens test was performed to ensure adequate perfusion. The patients right elbow was prepped and draped in sterile fashion. 1% Lidocaine was used to anesthetize the area. A 18G Arrow arterial line was introduced into the brachial artery. The catheter was threaded over the guide wire and the needle was removed with appropriate pulsatile blood return. The catheter was then sutured in place to the skin and a sterile dressing applied. Perfusion to the extremity distal to the point of catheter insertion was checked and found to be adequate. Estimated Blood Loss: 1ml The patient tolerated the procedure well and there were no complications. Marky Corral MD Mar 08, 2017 5:23 am
--- NOTE | 2017-03-08 05:38 | PD.PROCEDR ---
Procedure Note Procedure Endotracheal Intubation A time-out was completed verifying correct patient, procedure, site, positioning , and special equipment if applicable. The patient was placed in a flat position. The intubation was performed during the cardiopulmonary resuscitation and no sedation was required. The patient was easily ventilated using an ambu bag. The [employer]/ MAC 4 BLADE was used and inserted into the oropharynx at which time there was a Grade 1 view of the vocal cords. A 7.5-romanian endotracheal tube was inserted and visualized going through the vocal cords. The stylette was removed. Colorimetric change was visualized on the CO2 meter. Breath sounds were heard in both lung craig equally. The endotracheal tube was placed at 23 cm, measured at the teeth. A chest x-ray was ordered to assess for pneumothorax and verify endotrachealtube placement. Estimated Blood Loss: 0 The patient tolerated the procedure well and there were no complications. Marky Corral MD Mar 08, 2017 5:38 am
[2017-03-08] MEDS ORDERED: EPINEPHrine HCL (1:10,000) 1 MG/10 ML SYRINGE IV ONE ×2 (05:52)
[2017-03-08] MEDS ORDERED: SODIUM BICARBONATE 8.4% INJ 50 MEQ/50 ML SYR IV ONE ×2 (05:52)
[2017-03-08] MEDS ORDERED: CALCIUM CHLORIDE 10% SOLN 1 GRAM/10 ML SYR IV ONE (05:52)
[2017-03-08] MEDS ORDERED: ATROPINE SULFATE 1 MG/10 ML SYRINGE IV ONE (05:52)
[2017-03-08] MEDS: LEVOTHYROXINE SODIUM 88 MCG TAB PO SCH (06:00)
[2017-03-08] MEDS ORDERED: ISOSORBIDE MONONITRATE 30 MG TAB PO SCH (07:00)
--- NOTE | 2017-03-08 07:22 | TR ---
Date Performed: 03/07/2017 Time Performed: 13:09:56 DOCTOR: Fransisca Patino DRUG LIST: CLINICAL HISTORY: REASON FOR TEST: REASON FOR ENDING: OBSERVATION: CONCLUSION: Lexiscan stress test was performed under standard four minute protocol. Radionuclid e was injected one minute prior to ending the test. No electrocardiographic abormalities were present to suggest ischemia. Nuclear imaging and interpretation are pending. COMMENTS:
[2017-03-08] MEDS ORDERED: CHLORHEXIDINE 0.12% (ORAL KIT) 15 ML CUP MT SCH (08:00)
[2017-03-08] MEDS ORDERED: CLOPIDOGREL 75 MG TAB PO SCH (09:00)
[2017-03-08] MEDS ORDERED: EZETIMIBE 10 MG TAB PO SCH (09:00)
--- NOTE | 2017-03-08 22:42 | MA ---
cc: FREDERICK SIMS DATE 03/07/2017 INDICATIONS Unstable angina, high risk nuclear myocardial perfusion study, ischemic cardiomyopathy. PROCEDURE PERFORMED 1. Retrograde left heart catheterization with left ventriculography, selective coronary angiography, saphenous venous graft angiography and left internal mammary artery angiography 2. Thoracic aortogram. 3. Moderate sedation. ACCESS SITE Right femoral artery. EQUIPMENT USED 5 [place] pigtail catheter, 5 [place] JL4 and AR modified coronary artery catheters, left internal mammary artery catheter. MEDICATIONS 1. Versed IV. 2. Fentanyl IV. CONTRAST Omnipaque 120 cc. COMPLICATIONS None. ESTIMATED BLOOD LOSS Less than 10 cc. METHOD OF HEMOSTASIS VASCADE closure. RESULTS HEMODYNAMICS Heart rate 93 beats per minute. Left ventricular end-diastolic pressure 20 mmHg. Left ventricle 120/20. Aorta 120/61/86. LEFT VENTRICULOGRAPHY Ejection fraction 30%. Wall motion: inferior and inferobasal akinesis. No mitral regurgitation. CORONARY ANGIOGRAPHY Left main coronary artery patent. Left anterior descending artery is totally occluded in the mid portion. D-1 has severe 80% diffuse stenosis. D-2 is occluded. Left circumflex artery has 90% stenosis in the proximal portion and is totally occluded in the mid portion. OM-1 is totally occluded. Right coronary artery has 90% stenosis in the proximal portion and 100% stenosis in the mid portion. Saphenous vein graft to a diagonal artery has 60% proximal stenosis. Saphenous vein graft to the posterior descending artery has 95% distal stenosis at the anastomosis. Saphenous venous graft number three is totally occluded. Left internal mammary artery graft to the left anterior descending coronary artery is patent. DIAGNOSES 1. Very severe multivessel coronary artery disease. 2. Severe left ventricular systolic dysfunction. DISPOSITION Ms. Corley was found to have evidence of very severe multivessel coronary artery disease not amenable to coronary intervention. I recommend to continue medical management for her coronary disease I also recommend aggressive modification of her cardiac risk factors. Her overall prognosis is guarded due to the severity of her coronary artery disease. MD ACACIA Awad/KK /8:08 PM /10:02 PM JESSENIA
--- NOTE | 2017-03-09 00:43 | EKG ---
Date Performed: 03/07/2017 Time Performed: 21:39:46 PTAGE: 81 years EKG: Sinus tachycardia with borderline 1st degree A-V block. Left axis deviation Left bundle bra nch block Abnormal ECG PREVIOUS TRACING : 03/06/2017 12.48 Compared to prior tracing, rate increased, 1st degree AVB a nd LBBB more prominent DOCTOR: Ant Nixon Interpretating Date/Time 03/09/2017 00:42:40
--- NOTE | 2017-03-09 09:33 | MB ---
cc: LETICIA BLAND DO DATE OF CONSULTATION: March 04, 2017 IMPRESSION 1. Coughing and shortness of breath, likely related to pulmonary edema. 2. Atherosclerotic heart disease, history of coronary bypass grafting surgery in the remote past in [place]. She has not had recent functional testing. 3. Diabetes with target organ involvement including diabetic retinopathy, probable mild diabetic nephropathy. 4. Elevated troponins. 5. Hypertension. 6. Dyslipidemia. 7. History of colon cancer with chemotherapy for same. 8. History of Graves disease and subsequent hypothyroidism on thyroid replacement therapy. RECOMMENDATIONS The patient has been diuresed. She is having no chest discomfort, no evidence of hemodynamic instability. Would resume the patient's medications, increase her dose of furosemide. She will follow up with Dr. Pak in [place]. She needs to have repeat functional testing and echocardiogram has been ordered but is not available. CLINICAL DATA The patient is a 81-year-old female with known coronary artery disease admitted with coughing and some mild shortness of breath. This began Tuesday evening. She subsequently came to the hospital and chest x-ray demonstrated mild pulmonary edema, cardiomegaly with fluid in the minor fissure. She has a previous history of congestive heart failure. Her notes that a year ago they stopped at a hospital emergency room and she was diagnosed as having congestive heart failure. It is unclear if she had any workup or change in therapy. She has no history of angina, though she did not have angina prior to her surgery. According to her surgeon her veins were extremely small. She has a history of stroke. No history of seizure. She has had no recent febrile episodes and flu symptoms, etc. MEDICATIONS Her medications at the time of admission included: 1. Amlodipine 5 daily. 2. Aspirin 325 daily. 3. Levothyroxine 88 mcg daily. 4. Vitamin D. 5. Fish oil capsules. 6. Potassium chloride 8 mEq b.i.d. 7. Furosemide 20 b.i.d. 8. She also takes losartan, dose unknown. ALLERGIES She has multiple drug allergies including a DYE ALLERGY. She is apparently not on a statin currently. She has had no dizziness, palpitations. She has had no lower edema or significant weight gain. She has had no transient ___ deficit, amaurosis fugax. No claudication type symptoms. She has had no pain and no fever, no chills. PHYSICAL EXAMINATION GENERAL: Physical exam at this time demonstrates an alert, oriented female sitting up in bed breathing room air. She is not dyspneic nor tachypneic. VITAL SIGNS: Recent blood pressure 151/79, heart rate 80. HEENT: Anicteric sclerae. Jugular venous pressures are normal. There are no bruits. LUNGS: She has bibasilar rales. CARDIAC: Regular rate and rhythm. S1 normal, P2 is normal. There is no S3 or S4. There is a 1/6 systolic ejection murmur left midsternal border. EXTREMITIES: Free of cyanosis, clubbing, edema. Peripheral pulses are palpable but diminished. LABORATORY EXAMINATION Troponin between 0.08 and 0.22. TSH 1.28, lytes 141, 3.7, 105. Troponin 6 with a BUN of 17, creatinine of 1.1 and GFR of 48, random glucose was 171. White cell count was 5900, hematocrit was 35, platelet count was 235. Coags not done. Hemoglobin A1c not done. ELECTROCARDIOGRAM Her 12-lead electrocardiogram demonstrated a normal sinus rhythm. There was left axis deviation, nonspecific interventricular conduction delay, left bundle branch block type. There is left atrial abnormality and nonspecific ST-T changes with T-wave inversions across the precordial leads which are asymmetrical. DISCUSSION This is a 81-year-old female with an ischemic cardiomyopathy, who was admitted to hospital with coughing and shortness of breath secondary to mild pulmonary edema and congestive heart failure. An echocardiogram apparently has been completed but results are not available. The patient has indicated that she will follow up with Dr. Pak if she needs to have repeat functional testing and may require repeat cardiac catheterization. DO BROOKE Rodriguez/TEOFILO /6:32 PM /8:58 AM
== END 2017-03-08 05:53 | disposition expired | DRG 208 ==
LOC: PHEDDLT 12:15 → PH3B 12:30 → OBSVTOIN 03-07 15:30 → HDIC 03-07 17:29 → HCIS 03-07 20:19 → HIMN 03-08 00:45
PROVIDERS: ADMIT Internal Medicine Critical Care Medicine; ATTEND Internal Medicine Critical Care Medicine
PROC: B2111ZZ Fluoroscopy of Multiple Coronary Arteries using Low Osmolar Contrast (ICD-10-PCS; 2017-03-07)
PROC: B2151ZZ Fluoroscopy of Left Heart using Low Osmolar Contrast (ICD-10-PCS; 2017-03-07)
PROC: B2181ZZ Fluoroscopy of Left Internal Mammary Bypass Graft using Low Osmolar Contrast (ICD-10-PCS; 2017-03-07)
PROC: B2131ZZ Fluoroscopy of Multiple Coronary Artery Bypass Grafts using Low Osmolar Contrast (ICD-10-PCS; 2017-03-07)
PROC: B3101ZZ Fluoroscopy of Thoracic Aorta using Low Osmolar Contrast (ICD-10-PCS; 2017-03-07)
PROC: 4A023N7 Measurement of Cardiac Sampling and Pressure, Left Heart, Percutaneous Approach (ICD-10-PCS; principal; 2017-03-07 16:15)
PROC: 5A1935Z Respiratory Ventilation, Less than 24 Consecutive Hours (ICD-10-PCS; 2017-03-08)
PROC: 03HY32Z Insertion of Monitoring Device into Upper Artery, Percutaneous Approach (ICD-10-PCS; 2017-03-08)
PROC: 5A12012 Performance of Cardiac Output, Single, Manual (ICD-10-PCS; 2017-03-08)
PROC: 02H633Z Insertion of Infusion Device into Right Atrium, Percutaneous Approach (ICD-10-PCS; 2017-03-08)
PROC: 0BH17EZ Insertion of Endotracheal Airway into Trachea, Via Natural or Artificial Opening (ICD-10-PCS; 2017-03-08)
DX: J18.9 Pneumonia, unspecified organism (principal); J96.90 Respiratory failure, unspecified, unspecified whether with hypoxia or hypercapnia; R57.0 Cardiogenic shock; I11.0 Hypertensive heart disease with heart failure; I50.9 Heart failure, unspecified; I25.110 Atherosclerotic heart disease of native coronary artery with unstable angina pectoris; I25.5 Ischemic cardiomyopathy; E10.21 Type 1 diabetes mellitus with diabetic nephropathy; E10.319 Type 1 diabetes mellitus with unspecified diabetic retinopathy without macular edema; E03.9 Hypothyroidism, unspecified; E10.65 Type 1 diabetes mellitus with hyperglycemia; F41.9 Anxiety disorder, unspecified; E78.5 Hyperlipidemia, unspecified; Z86.73 Personal history of transient ischemic attack (TIA), and cerebral infarction without residual deficits; Z85.038 Personal history of other malignant neoplasm of large intestine; Z92.21 Personal history of antineoplastic chemotherapy; Z79.4 Long term (current) use of insulin; Z95.1 Presence of aortocoronary bypass graft; Z95.5 Presence of coronary angioplasty implant and graft; Z79.82 Long term (current) use of aspirin
CPT/HCPCS: 36556; 36600; 70450; 70544; 70547; 70551; 71045; 78452; 80048; 80053; 80061; 81001; 82550; 82805; 82948; 83735; 83880; 84443; 84484; 85025; 85027; 85384; 85610; 85730; 86077; 86850; 86870; 86900; 86901; 86920; 86922; 87641; 92950; 93005; 93017; 93306; 93459; 93567; 93880; 94002; 96360; 96361; 96372; 99152; 99153; A9502; C1760; C1769; C1893; G0269; G0378; G8987-GO; G8987-GP; G8988-GO; G8988-GP; G8989-GO; J0171; J0461; J1265; J1644; J1815; J2250; J2370; J2785; J2930; J3010; J7030; J7060; J7070; P9047; Q9967